=== PATIENT | female | born 1970 | race African-American/Black ===

== ENCOUNTER → 2017-03-02 | Outpatient (CLI) | payer OTHER ==
[~2017-03-02] MED LIST: AMOXICILLIN 50500 M1 PO; BAYER CHEWABLE81 MG PO; BENADRYL25 MG PO; BIAXIN 500 MG500 M1 PO; CITRATE OF MAG296 ML PO; DIABETA 5MG TABL5 MG; FERRIPROX; GLIPIZIDE 10 MG10 MG PO; GLUCOPHAGE1000 MG PO; GLUCOSE 40% GEL15 GM; GLYBURIDE 5 MG T5 M1 PO; HYDROCODON-ACE1 EA12 PO; HYDROCODONE-APA1 TA1 PO; IRON SUPPLEMEN325 MG PO; KEFLEX500 MG PO; LANTUS SUBQ; LEVAQUIN 500 M500 M2; LEVAQUIN 500 M500 M2 PO; LISINOPRIL10 MG PO; METFORMIN HCL500 MG PO; MIRALAX17 GM PO; NORCO 5-325 TA1 EACH PO; NOVOLOG100 UNIT/1 SUBQ; PROTONIX40 M1 PO; REGLAN 5 MG TAB5 M1 PO; REGLAN 5 MG TAB5 MG PO; TRAMADOL 50 MG50 MG PO; VITAMIN B12-FO1 EAC1 PO; ZOFRAN ODT4 MG PO; ZOFRAN4 MG PO; ZPAK PO
--- NOTE | ~2017-03-02 | 2DMMODE ---
[facility] [address] [place] [address] 2 D/M-MODE ECHOCARDIOGRAM Name: SHANNAN FRANK Room #: REG [facility] [id number] Admission: 03/02/17 Attend Phys: Jack Carter Discharge: Date of : 74 Date of Service: 03/02/17 1325 Report #: [id number] THIS REPORT FOR: //name// APPROVED REPORT Study performed: 03/02/2017 07:54:42 EXAM: Comprehensive 2D, Doppler, and color-flow Echocardiogram Patient Location: Out-Patient BSA: 1.72 HR: 84 bpm Other Information Study Quality: Adequate Indications Chest Pain 2D Dimensions RVDd: 35.76 mm LVEF(%): 52.24 (>50%) IVSd: 11.65 (7-11mm) LVOT Diam: 20.75 (18-24mm) LVDd: 49.04 mm PWd: 11.87 (7-11mm) Ascending Ao: 30.79 (22-36mm) LVDs: 35.88 (25-40mm) Aortic Root: 26.75 mm Roth's LVEF: 52.24 % Volumes Left Atrial Volume (Systole) Single Plane 4CH: 55.14 mL Single Plane 2CH: 56.76 mL LA ESV Index: 35.00 mL/m2 Aortic Valve AoV Peak Hiram.: 1.32 m/s AO Peak Gr.: 7.02 mmHg LVOT Max P.60 mmHg LVOT Max V: 0.81 m/s COSME Vmax: 2.06 cm2 Mitral Valve E/A Ratio: 1.1 MV Decel. Time: 156.21 ms MV E Max Hiram.: 1.02 m/s MV A Hiram.: 0.95 m/s [facility] [place] [address] 2 D/M-MODE ECHOCARDIOGRAM Name: SHANNAN FRANK Room #: [facility]#: [id number] Admission: 03/02/17 Attend Phys: Jack Carter Discharge: Date of : 74 Date of Service: 03/02/17 1325 Report #: [id number] MV PHT: 45.30 ms IVRT: 96.89 ms Pulmonary Valve PV Peak Hiram.: 0.99 m/s PV Peak Gr.: 3.92 mmHg Pulmonary Vein P Vein S: 0.51 m/s P Vein A: 0.30 m/s P Vein D: 0.59 m/s P Vein A Dur.: 120.0 msec P Vein S/D Ratio: 0.86 Tricuspid Valve TR Peak Hiram.: 2.59 m/s RAP Estimate: 5.00 mmHg TR Peak Gr.: 26.81 mmHg PA Pressure: 32.00 mmHg Left Ventricle The left ventricle is normal size. Borderline concentric left ventricular hypertrophy. The left ventricular systolic function is normal. The left ventricular ejection fraction is within the normal range. LVEF is 50-55%. The left ventricular diastolic function is normal. Right Ventricle The right ventricle is normal size. The right ventricular systolic function is normal. Atria Left atrium is dilated. The right atrium size is normal. Aortic Valve The aortic valve is normal in structure. No aortic regurgitation is present. There is no aortic valvular stenosis. Mitral Valve The mitral valve is normal in structure. Trace mitral regurgitation. No evidence of mitral valve stenosis. Tricuspid Valve The tricuspid valve is normal in structure. There is trace tricuspid regurgitation. The right atrial pressure is estimated at 5 mmHg. There is mild pulmonary hypertension with an estimated PAP of 32 mmHg. Pulmonic Valve The pulmonary valve is normal in structure. There is no pulmonic [address] [address] 2 D/M-MODE ECHOCARDIOGRAM Name: SHANNAN FRANK Room #: REG CL Daniel#: [id number] Admission: 03/02/17 Attend Phys: Jack Carter Discharge: Date of : 74 Date of Service: 03/02/17 1325 Report #: [id number] valvular regurgitation. Great Vessels The aortic root is normal in size. The ascending aorta is normal in size. IVC is normal in size and collapses >50% with inspiration. Pericardium There is no pericardial effusion. <Conclusion> The left ventricle is normal size. LVEF is 50-55%. Left atrium is dilated. The aortic valve is normal in structure. The mitral valve is normal in structure. Trace mitral regurgitation. The tricuspid valve is normal in structure. There is trace tricuspid regurgitation. The right atrial pressure is estimated at 5 mmHg. There is mild pulmonary hypertension with an estimated PAP of 32 mmHg. The pulmonary valve is normal in structure. <ELECTRONICALLY SIGNED> By: Jack Martinez MD 03/02/17 1325 24 1325 Jack Martinez MD /INF
== END ==
LOC: CV 07:03 → NUC 07:31 → CV 10:42
DX: I27.2 Other secondary pulmonary hypertension (principal); R60.9 Edema, unspecified

== ENCOUNTER → 2017-06-20 | Outpatient (CLI) | payer OTHER | LOC: MRI 12:20 | DX: M50.30 Other cervical disc degeneration, unspecified cervical region (principal); E11.42 Type 2 diabetes mellitus with diabetic polyneuropathy; R20.2 Paresthesia of skin; Z86.73 Personal history of transient ischemic attack (TIA), and cerebral infarction without residual deficits ==

== ENCOUNTER → 2017-07-13 | Outpatient (CLI) | payer OTHER | LOC: ULTRA 09:20 → RAD 11:07 | DX: N18.3 Chronic kidney disease, stage 3 (moderate) (principal); E11.42 Type 2 diabetes mellitus with diabetic polyneuropathy; Z86.73 Personal history of transient ischemic attack (TIA), and cerebral infarction without residual deficits ==

== ENCOUNTER → 2017-08-19 | Outpatient (CLI) | payer OTHER | LOC: RAD 16:10 | DX: M25.512 Pain in left shoulder (principal) ==

== ENCOUNTER → 2018-07-24 | Outpatient (CLI) | payer OTHER | LOC: CAT 10:08 | DX: K40.90 Unilateral inguinal hernia, without obstruction or gangrene, not specified as recurrent (principal); C18.2 Malignant neoplasm of ascending colon; I25.10 Atherosclerotic heart disease of native coronary artery without angina pectoris; J98.4 Other disorders of lung; R19.5 Other fecal abnormalities ==

== ENCOUNTER → 2018-10-26 | Outpatient (CLI) | payer OTHER | LOC: MRI 10-24 10:46 | DX: M54.16 Radiculopathy, lumbar region (principal); G63 Polyneuropathy in diseases classified elsewhere; E11.22 Type 2 diabetes mellitus with diabetic chronic kidney disease; N18.4 Chronic kidney disease, stage 4 (severe) ==

== ENCOUNTER → 2018-10-26 | Outpatient (CLI) | payer OTHER | LOC: RAD 15:13 | DX: I10 Essential (primary) hypertension (principal) ==

== ENCOUNTER 2018-12-25 17:43 | Inpatient (IN) | payer OTHER ==
[~2018-12-25] VITALS: Ht 157.5 cm; Wt 76.2 kg
--- NOTE | ~2018-12-25 | D ---
[facility] [place] [address] [place] [address] DISCHARGE SUMMARY Name: SHANNAN FRANK Room #: 363-P ADM IN M.R.#: [id number] Admission: 12/25/18 ������������������ Attend Phys: Nohelia Rosa Discharge: ������������������ Date of : 74 Report #: [id number] THIS REPORT FOR: //name// CC: Robert Gould Fam DATE OF SERVICE: 12/29/2018 ATTENDING PHYSICIAN: Dr. Roebrt Kenyon. CHIEF COMPLAINT: Feeling short of breath and having some abdominal pain. HISTORY OF PRESENT ILLNESS: The patient is a 48-year-old female with known history of renal failure, diabetes mellitus and hypertension, who presented with complaints of having lower abdominal pain. On evaluation, she was noted to have a urinary tract infection and was started on IV Rocephin. During the stay in the hospital, she was closely monitored regarding her renal function, which continued to improve. Her medications were adjusted. She was taken off the lisinopril and the torsemide. She was closely followed by the Renal Service. She was also monitored regarding her blood sugars and was restarted on her home regimen of insulin. She also remained stable regarding her blood pressure, which remained controlled. The patient did complain of having low oxygen saturation, which was monitored, and there was no cause for it. At the time of discharge, the oxygen saturation was 92-93% on room air. This was discussed with the patient that it could be a fact secondary to a pain medication. The patient was advised to wean off the pain medication. The patient was discharged to home in a stable and improved condition. FINAL DIAGNOSES: 1. Urinary tract infection. Urine culture was pending. 2. Renal failure. 3. Diabetes mellitus. 4. Hypertension. 5. Neuropathy. 6. Blindness. PLAN: The patient was discharged to home in a stable and improved condition To increase activity as tolerated and to take a renal diet. ��������������������������������������������� ���������������������������������������� By: ��������������������������������������������� 1232 1244 Bryanna Otto MD /nt
[2018-12-25 18:06] VITALS: BP 174/65
[2018-12-25 20:40] LABS: URINE BILIRUBIN NEGATIVE (Negative); URINE BLOOD 1+ (Negative); URINE CLARITY CLEAR; URINE COLOR YELLOW; URINE GLUCOSE-RANDOM* 3+ (Negative); URINE KETONES NEGATIVE (Negative); URINE NITRITE-REFLEX NEGATIVE (Negative); URINE PROTEIN (DIPSTICK) 2+ (Negative); URINE UROBILINOGEN 0.2 E.U./dl (0.2-1.0)
[2018-12-25 20:41] LABS: URINE LEUKOCYTES-REFLEX 1+ (Negative)
[2018-12-25 20:51] LABS: BACTERIA-REFLEX None Seen /HPF (None Seen); CASTS None Seen /LPF (None Seen); CRYSTALS None Seen /LPF (None Seen); SQUAMOUS None Seen /LPF (0-3); URINE RBC 0-2 Rare /HPF (0-2); URINE WBC-REFLEX >25 Many /HPF (0-5); WBC CLUMPS Moderate (None Seen)
[2018-12-25 21:02] LABS: HEMATOCRIT 28.4 % (37.0-47.0); HEMOGLOBIN 9.2 gm/dL (12.0-15.0); MCH 27.9 pg (26.0-34.0); MCHC 32.6 g/dL (28.0-37.0); MCV 85.5 fL (80.0-100.0); PLATELET COUNT 280 thou/uL (150-400); RBC 3.32 mil/uL (4.20-5.00); RDW 14.3 % (10.5-14.5); WBC 5.9 thou/uL (4.0-11.0)
[2018-12-25 21:17] LABS: ALBUMIN 3.7 g/dL (3.4-5.0); DIRECT BILIRUBIN < 0.1 mg/dL (<0.1-0.3); LIPASE 230 U/L (73-393); SGOT 19 U/L (15-37); SGPT 17 U/L (30-65); TOTAL BILIRUBIN 0.1 mg/dL (<0.1-1.0)
[2018-12-25 21:20] LABS: ABSOLUTE NEUTROPHILS 3.7 thou/uL (1.4-8.2); ANISOCYTOSIS 1+; NUCLEATED RBCS 1 /100WBC; POLYCHROMASIA OCCASIONAL
[2018-12-25 21:21] LABS: POTASSIUM 5.3 mmol/L (3.5-5.1)
[2018-12-25] MEDS ORDERED: SODIUM BICARBO650 M3 PO (22:42)
[2018-12-25] MEDS ORDERED: DEMADEX10 MG PO (22:43)
[2018-12-25] MEDS ORDERED: NORCO 5-325 TA1 EAC1 PO (22:44)
[2018-12-25] MEDS ORDERED: FLEXERIL PO (22:45)
[2018-12-25] MEDS ORDERED: AMLODIPINE BESY10 MG PO (22:46)
[2018-12-25] MEDS ORDERED: CARVEDILOL12.5 MG (22:46)
[2018-12-25] MEDS ORDERED: XANAX 0.25 MG0.25 MG PO (22:48)
[2018-12-25] MEDS ORDERED: GABAPENTIN 100100 MG PO (22:48)
[2018-12-26 00:34] VITALS: BP 189/88
--- NOTE | 2018-12-26 06:00 | NUR ---
PT ARRIVED OT UNIT AT 2300. COMPLETED ADMISSION, ACTIVATED CARE PLAN, AND ADDED NECESSARY INTERVENTIONS. FALL PRECAUTIONS IN PLACE PT STATES SHE HAD SOME WEAKNESS DUE TO N/V. PAIN CONTROL AND NAUSEA MANAGEMENT WERE THE GOALS FOR REST OF SHIFT. GAVE 2X IV PAIN MEDICATION AND 1X ZOFRAN FOR NAUSEA. PT DRINKS HOT WATER SHE STATES SHE IS ALWAYS COLD. PT ASKED FOR XANAX THAT IS A HOME MEDICATION. WOUNDS CONSIST OF ONE SMALL SKIN TEAR ON LEFT OUTER FOOT THAT HAS A BAND-AID ON IT FROM HOME. POC BEING FOLLOWED WITH IVF. A CONSULT TO NEPHROLOGY WILL BE PLACED. HOURLY ROUNDING AND PT USES CALL LIGHT EFFECTIVELY.
[2018-12-26 07:25] VITALS: BP 149/65
--- NOTE | 2018-12-26 09:07 | NUR ---
Nutrition: pt admit with adb pain, nausea and loose stools x 3 days. Noted pt wt up 30 lb over past several years. Na 130, BUN 44, K 5.3, albumin 3.7. Nephrology has been consulted. No H&P available yet. Pt with c/o nausea, no intake records. Expect normal intake as symptoms resolve. Assess at low-mild nutrition risk at this time.
[2018-12-26 16:45] VITALS: BP 157/81
[2018-12-26 19:09] VITALS: BP 137/62
--- NOTE | 2018-12-26 19:30 | NUR ---
PATIENT ALERT AND ORIENTED AND VERY KNOWLEDGEABLE ABOUT HER CARE AND MEDS. 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 PATIENT CONTINUES TO HAVE LOW ABDOMINAL PAIN. PATIENT ALSO CONCERNED THAT SHE IS NOT RECEIVING MEDS SHE WAS PREVIOUSLY TAKING AT HOME. CONTACTED DR. DÍAZ AND HE IS AWARE. WILL CONTINUE TO MONITOR.
[2018-12-27 04:13] VITALS: BP 160/77
--- NOTE | 2018-12-27 04:27 | NUR ---
STILL HAVING NAUSEA, [place] [id number]. UPSET ABOUT HOW HER HOME MEDS ARE BEING MANAGED BY HER PRIMARY CARE DOCTOR. SAID SHE WILL TALK TO THEM TODAY. UP ADLIB, GAIT STEADY, SON STAYED ALL NIGHT AND ASSISTED PATIENT. IVF INFUSING, TOLERATING ORAL INTAKE, MONITORED.
[2018-12-27 05:58] LABS: HEMATOCRIT 26.1 % (37.0-47.0); HEMOGLOBIN 8.6 gm/dL (12.0-15.0); MCH 28.3 pg (26.0-34.0); MCHC 32.9 g/dL (28.0-37.0); MCV 85.8 fL (80.0-100.0); RBC 3.04 mil/uL (4.20-5.00); RDW 14.7 % (10.5-14.5); WBC 4.4 thou/uL (4.0-11.0)
[2018-12-27 06:14] LABS: CALCIUM 8.5 mg/dL (8.5-10.1); CREATININE 4.5 mg/dL (0.6-1.0); POTASSIUM 4.6 mmol/L (3.5-5.1)
[2018-12-27 07:18] VITALS: BP 172/90
--- NOTE | 2018-12-27 10:10 | NUR ---
assessment: CM REVIEWED CHART AND MET WITH PT AT THE BEDSIDE. PT WAS ADMITTED WITH ACUTE ON CHRONIC RF. PT REPORTS SHE LIVES IN A TOWNHOUSE WITH HER KIDS. PT REPORTS HAVING A FEWS STEP TO ENTER AND REPORTS A FULL FLIGHT OF STEPS WITH HANDRAILS TO HER BEDROOM. PT REPORTS AMBULATING INDEPENDENTLY. PT REPORTS SHE INDEPENDENT WITH ADLS. CM DISCUSSED ROLE. PT REPORTS SHE WAS GOING TO OUTPT THERAPY HERE A [facility] AND PLANS ON RESUMING AT DISCHARGE. SHE STATES SHE WILL CONTACT DR. DUMONT IF NEEDED TO RESUME OUTPATIEN THERAPY. PT REPORTS NO FURTHER NEEDS FROM CM PRIOR TO DISCHARGE.
[2018-12-27 11:22] LABS: % SATURATION 20 % (20-39); IRON 49 ug/dL (50-170); TIBC 245 ug/dL (250-450)
--- NOTE | 2018-12-27 12:56 | H ---
[facility] [place] [place] [address] HISTORY AND PHYSICAL Name: SHANNAN FRANK Room #: 363-P ADM IN M.R.#: [id number] Admission: 12/25/18 ������������������ Attend Phys: Nohelia Rosa Discharge: ������������������ Date of : 74 Report #: [id number] THIS REPORT FOR: //name// CC: Robert Gould Fam DATE OF SERVICE: 12/26/2018 CHIEF COMPLAINT: Abdominal pain. HISTORY OF PRESENT ILLNESS: The patient is a 48-year-old female with multiple medical problems, came in to the Emergency Room with 3-day history of abdominal pain. She reports some diarrhea few episodes, but mainly dry type nausea with pain in the suprapubic area for about 3 days. She has not been eating well and has just been using Zofran as needed. She held off on some of her medicines including insulin because she has had not been eating. Urinalysis through the ER suggested acute infection. PAST MEDICAL HISTORY: Chronic kidney disease, diabetes type 2, hypertension, anemia of chronic disease, history of H. pylori with GI bleed, transfusions in 2013, 2015, and 2016, stroke in 2017. There was a report of tumor in the ascending colon. PAST SURGICAL HISTORY: As above. FAMILY HISTORY: Unknown. SOCIAL HISTORY: Denies chronic alcohol or tobacco use. ALLERGIES: AMOXICILLIN, CODEINE, PENICILLIN. MEDICATIONS: Zofran, iron, Lantus, NovoLog, lisinopril, hydrocodone, Protonix, glyburide. REVIEW OF SYSTEMS: She denies headache, chest pain, shortness of breath, dysuria, myalgias, arthralgias, syncope, or fall. OBJECTIVE: VITAL SIGNS: Temperature 36.9, pulse 85, respirations 16, blood pressure 149/65, O2 sat 99% on room air. GENERAL: She is awake and alert, in no distress. HEAD AND NECK: Unremarkable. LUNGS: Clear. HEART: Regular. ABDOMEN: Soft, normoactive bowel sounds. Tender over the suprapubic area. No rebound, no guarding. [facility] [address] [place] [address] HISTORY AND PHYSICAL Name: SHANNAN FRANK Room #: 363-P ADM IN M.R.#: [id number] Admission: 12/25/18 ������������������ Attend Phys: Nohelia Rosa Discharge: ������������������ Date of : 74 Report #: [id number] EXTREMITIES: No cyanosis, clubbing, or edema. NEUROLOGIC: Motor strength 4-5/5 throughout. LABORATORY DATA: White count is normal, hemoglobin 9. Potassium 5.3, creatinine 5, glucose this morning was 173. Urinalysis had protein, blood, leukocyte esterase, white cells and clumps. Urine culture is pending. ASSESSMENT: 1. Acute cystitis. 2. Abdominal pain, likely due to urinary tract infection. 3. Acute on chronic kidney disease, stage 4. 4. Hyperkalemia due to the above. 5. Anemia of chronic disease. 6. Uncontrolled diabetes type 2. 7. Hypertension. PLAN: I will resume her antihypertensive medications and use sliding scale insulin for now until eating and then adjust accordingly. AVA inhibitor and diuretic to be held and Renal consult has been placed. ��������������������������������������������� <ELECTRONICALLY SIGNED> ���������������������������������������� By: Luis Armando Lynne MD ��������������������������������������������� 12/27/18 1256 1023 1050 Luis Armando Lynne MD /nt
--- NOTE | 2018-12-27 13:17 | NUR ---
Nutrition: follow up as H&P and more info available. Dx: acute on chronic CKD, stage IV. Night RN noted pt tolerating po. However, advertising layout worker noted pt with decreased appetite, N/V and questioning possible gastroparesis. RD will follow up with pt and reassess.
[2018-12-27 20:15] VITALS: BP 170/79
--- NOTE | 2018-12-27 20:25 | NUR ---
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 PATIENT UPSET WITH DR. DÍAZ REGARDING HER MEDICATIONS. DR. DÍAZ ATTEMPT TO TALK WITH PATIENT BUT PATIENT REQUEST DR. DÍAZ TO LEAVE THE ROOM, STATING YOUR NOT LISTENING TO ME. DR. ROYAL WILL TAKE OVER CARE TOMORROW AND PATIENT STATES THIS IS OK WITH HER. PATIENT IS ABLE TO ABULATE BY HERSELF AND WAS ENCOURAGED TO BE PHYSICALLY ACTIVE. PATIENT FRIEND, KATERINE, AND SONS PERIODICALLY IN ROOM. PATIENT REQUEST MEDS FROM HER PHARMACY BE FAXED TO [facility], BUT HER PHARMACY INDICATED IT CANNOT BE DONE. MEDS LIST FROM [facility] IS AVAILABLE IN [employer] AND PRINTED COPY AND PLACE IN CHART. PATIENT CONTINUES TO HAVE LOW ABDOMINAL PAIN. WILL CONTINUE TO FOLLOW.
[2018-12-28 00:09] VITALS: BP 170/79
[2018-12-28 04:45] VITALS: BP 153/72
--- NOTE | 2018-12-28 06:23 | NUR ---
FOLLOWING POC IN PAIN AND BLOOD SUGAR MANAGEMENT. PT STATES SHE HAS GENERALIZED ABDOMINAL PAIN. PT IS A/0 X4, UP AD ALLISON AND RUNS NSR ON TELE. PT IS ON AND OFF OXYGEN WITH 2 L VIA NC WHEN SHE FEELS ANXIETY. XANAX GIVEN FOR ANXIETY. PT IS CONTINENT TO BOTH GI AND . SKIN IS INTACT, AND PLAN IS TO DC TO HOME. PT REFUSES TO WEAR SCD'S. PT SON ROOMING IN. HOURLY ROUNDING.
[2018-12-28 07:24] LABS: ALBUMIN 3.1 g/dL (3.4-5.0); CALCIUM 8.9 mg/dL (8.5-10.1); CREATININE 4.4 mg/dL (0.6-1.0); PHOSPHORUS 5.3 mg/dL (2.5-4.9)
[2018-12-28 07:27] VITALS: BP 156/76
[2018-12-28] MEDS ORDERED: GLYBURIDE 2.52.5 MG PO (09:37)
[2018-12-28 15:56] VITALS: BP 151/80
[2018-12-28 19:20] VITALS: BP 147/66
--- NOTE | 2018-12-28 20:14 | NUR ---
PT REPORTS A HEADACHE AND TREATED WITH NORCO WITH GOOD RESULTS..VERY WITHDRAWN FLAT AFFECT..
[2018-12-29 03:19] VITALS: BP 138/64
[2018-12-29 06:34] LABS: ALBUMIN 2.9 g/dL (3.4-5.0); CALCIUM 8.8 mg/dL (8.5-10.1); CREATININE 4.2 mg/dL (0.6-1.0); POTASSIUM 5.3 mmol/L (3.5-5.1)
--- NOTE | 2018-12-29 06:48 | NUR ---
DC GOALS ARE BEING MET AND PT COULD POSSIBLY DC TODAY. PT UP AD ALLISON AND WAS WANTING TO WALK AROUND THE UNIT. PT IN BETTER SPIRITS AND INCREASING POSITIVE MOOD. PT ONLY REQUEST WAS FOR XANAX. NO OTHER COMPLIANTS AND PT SONS ROOMING IN. HOURLY ROUNDING.
[2018-12-29 07:45] VITALS: BP 155/59
[2018-12-29 11:32] VITALS: BP 149/62
--- NOTE | 2018-12-29 12:03 | HC ---
[facility] [place] [address] CONSULTATION Name: SHANNAN FRANK Room #: 363-P ADM IN M.R.#: [id number] Admission: 12/25/18 ������������������ Attend Phys: Nohelia Rosa Discharge: ������������������ Date of : 74 Report #: [id number] THIS REPORT FOR: //name// CC: Robert Kenyon Stanfiona Fam DATE OF SERVICE: 12/26/2018 NEPHROLOGY CONSULTATION REASON FOR CONSULTATION: Acute on chronic kidney disease. HISTORY OF PRESENT ILLNESS: This 48-year-old patient with longstanding diabetes, hypertension, progressive diabetic nephropathy and stage 4 chronic kidney disease, presents with several days history of nausea and then some diarrhea, poor appetite, generalized malaise. She has been followed in our office by Dr. Pompa for CKD, and is undergoing workup for kidney transplantation. PAST MEDICAL HISTORY: Longstanding diabetes and hypertension. She had colon cancer and had a partial colectomy 4 years ago. She has had a small CVA in the past. She has got retinopathy and has had several laser treatments to her eyes and she has peripheral neuropathy. HOME MEDICATIONS: Include iron, insulin, lisinopril 20 mg daily, metformin 500 mg b.i.d., Protonix 40 mg b.i.d., glyburide. ALLERGIES: PENICILLIN AND CODEINE. SOCIAL HISTORY: Nonsmoker, occasional use of alcohol. REVIEW OF SYSTEMS: GENERAL: She has been feeling poorly. EYES: She has got very poor vision. ENT: Hearing okay, swallows okay. No mouth sores. ENDOCRINE: Positive for the diabetes. RESPIRATORY: No shortness of air. CARDIAC: No chest pain, angina or palpitations. GASTROINTESTINAL: She has had the poor appetite, nausea, unable to really eat and some diarrhea. GENITOURINARY: No dysuria or hematuria. NEUROLOGIC: She has got peripheral neuropathy with pain and numbness in her feet. SKIN: There are no skin rashes. PHYSICAL EXAMINATION: [facility] [address] [place] [address] CONSULTATION Name: SHANNAN FRANK Room #: [address] [place] [address] [place] [facility].#: [id number] Admission: 12/25/18 ������������������ Attend Phys: Nohelia Rosa Discharge: ������������������ Date of : 74 Report #: [id number] VITAL SIGNS: This is an ill-appearing, lethargic patient. SKIN: Unremarkable. SKELETAL: Shows her to be well developed, well nourished. No amputations. HEENT: Extraocular movements are full. Vision is poor. No scleral icterus. Hearing intact. Mucous membranes are dry. NECK: Supple. CHEST: Clear to auscultation. HEART: Regular. ABDOMEN: Slightly tender in the lower quadrants. EXTREMITIES: Show no edema. Pulses intact. NEUROLOGIC: Shows numbness in the feet. LABORATORY DATA: Glucose is 525, the creatinine is 5, potassium is 5.3. Sodium is 130. Hemoglobin is 9.2. ASSESSMENT AND PLAN: 1. Acute on chronic kidney disease. She is volume depleted. She has chronic kidney disease as well. She is undergoing workup in our office for transplantation and preparation for possible end-stage renal disease therapy. 2. Diabetes mellitus with triopathy. 3. Nausea with poor appetite and diarrhea. She has a GI illness. She has actually been vomiting. I wonder about gastroparesis or gastroenteritis. 4. History of resected colon cancer. 5. History of cerebrovascular accident. ��������������������������������������������� <ELECTRONICALLY SIGNED> ���������������������������������������� By: Grant Hernandez MD ��������������������������������������������� 12/29/18 1203 1157 1246 Grant Hernandez MD /nt
[2018-12-29] MEDS ORDERED: COREG6.25 MG PO (12:11)
[2018-12-29] MEDS ORDERED: AMLODIPINE BESY10 MG PO (12:14)
[2018-12-29] MEDS ORDERED: ALPRAZOLAM 0.50.5 M1 PO (12:16)
[2018-12-29] MEDS ORDERED: SODIUM BICARBO650 M3 PO (12:17)
[2018-12-29 13:06] VITALS: BP 149/62
--- NOTE | 2018-12-29 15:33 | NUR ---
care of pt assumed this am @ ~0700. pt noted to be very sleepy this am up until lunch time. pt requested a shower, but was interupted by dr danny, meals, nurse requests that she never got around to the shower, and just chose to take one at home upon finding out about dc today. pt denies n/v/d, goo appetite for food and fluid today. pt refused to take her lisinopril and torsemide today. pt denied need for pain medication today. pt called friend for a ride home, arrive late this afternoon. scripts given w/ education materials. discharge paperwork gone through w/ pt. iv access dc'd and tele dc'd. pt states she will fu w/ dr. wan on Tuesday.
== END 2018-12-29 15:03 | disposition home or self-care (01) | DRG 690 ==
LOC: ER 17:43 → 3W 22:04 → EROBS 22:04 → 3W 12-26 00:21 → ENTRNSPT 12-29 15:27
PROVIDERS: Emergency Medicine; Internal Medicine Geriatric Medicine; Internal Medicine Nephrology; ADMIT Internal Medicine
DX: N30.00 Acute cystitis without hematuria (principal); N17.9 Acute kidney failure, unspecified; N18.4 Chronic kidney disease, stage 4 (severe); E11.65 Type 2 diabetes mellitus with hyperglycemia; K21.9 Gastro-esophageal reflux disease without esophagitis; E87.5 Hyperkalemia; E11.319 Type 2 diabetes mellitus with unspecified diabetic retinopathy without macular edema; I12.9 Hypertensive chronic kidney disease with stage 1 through stage 4 chronic kidney disease, or unspecified chronic kidney disease; E11.41 Type 2 diabetes mellitus with diabetic mononeuropathy; E86.9 Volume depletion, unspecified; E11.22 Type 2 diabetes mellitus with diabetic chronic kidney disease; H54.7 Unspecified visual loss; D63.1 Anemia in chronic kidney disease; Z79.4 Long term (current) use of insulin; Z86.73 Personal history of transient ischemic attack (TIA), and cerebral infarction without residual deficits; Z88.6 Allergy status to analgesic agent; Z88.1 Allergy status to other antibiotic agents; Z88.0 Allergy status to penicillin; Z85.038 Personal history of other malignant neoplasm of large intestine; Z90.49 Acquired absence of other specified parts of digestive tract
CPT/HCPCS: 10879

== ENCOUNTER 2019-07-21 13:07 | Emergency (ER) | payer OTHER ==
[~2019-07-21] VITALS: Ht 157.5 cm; Wt 77.2 kg
[~2019-07-21 13:07] MED LIST changes: +ALPRAZOLAM 0.50.5 M1 PO; +AMLODIPINE BESY10 MG PO; +CARVEDILOL12.5 MG; +COREG6.25 MG PO; +DEMADEX10 MG PO; +FLEXERIL PO; +GABAPENTIN 100100 MG PO; +GLYBURIDE 2.52.5 MG PO; +NORCO 5-325 TA1 EAC1 PO; +SODIUM BICARBO650 M3 PO; +XANAX 0.25 MG0.25 MG PO
[2019-07-21 16:54] LABS: HEMATOCRIT 29.9 % (37.0-47.0); HEMOGLOBIN 9.8 gm/dL (12.0-15.0); MCH 30.5 pg (26.0-34.0); MCHC 32.8 g/dL (28.0-37.0); RBC 3.21 mil/uL (4.20-5.00); RDW 18.6 % (10.5-14.5); WBC 7.7 thou/uL (4.0-11.0)
[2019-07-21 17:03] LABS: CALCIUM 9.4 mg/dL (8.5-10.1); CREATININE 7.2 mg/dL (0.6-1.0); POTASSIUM 4.4 mmol/L (3.5-5.1)
[2019-07-21] MEDS ORDERED: LASIX 20 MG TAB20 MG PO (17:18)
[2019-07-21 17:51] VITALS: BP 172/82
== END 2019-07-21 17:53 | disposition still patient (30) ==
LOC: ER 13:07
PROVIDERS: Emergency Medicine
DX: T82.590A Other mechanical complication of surgically created arteriovenous fistula, initial encounter (principal); I10 Essential (primary) hypertension; E11.9 Type 2 diabetes mellitus without complications; K21.9 Gastro-esophageal reflux disease without esophagitis; Z86.2 Personal history of diseases of the blood and blood-forming organs and certain disorders involving the immune mechanism; Z98.890 Other specified postprocedural states; Z86.73 Personal history of transient ischemic attack (TIA), and cerebral infarction without residual deficits; Z79.4 Long term (current) use of insulin; Z88.0 Allergy status to penicillin; Z88.1 Allergy status to other antibiotic agents; Z88.6 Allergy status to analgesic agent; Y83.9 Surgical procedure, unspecified as the cause of abnormal reaction of the patient, or of later complication, without mention of misadventure at the time of the procedure; Y92.89 Other specified places as the place of occurrence of the external cause

== ENCOUNTER 2019-08-09 20:21 | Emergency (ER) | payer OTHER ==
[~2019-08-09] VITALS: Ht 157.5 cm; Wt 73.9 kg
[~2019-08-09 20:21] MED LIST changes: +LASIX 20 MG TAB20 MG PO
[2019-08-09 21:02] LABS: ABSOLUTE NEUTROPHILS 11.3 thou/uL (1.4-8.2); BASOPHILS 0.3 % (0.0-2.0); EOSINOPHILS 0.6 % (0.0-3.0); MCH 29.8 pg (26.0-34.0); MCHC 32.1 g/dL (28.0-37.0); MCV 92.8 fL (80.0-100.0); MONOCYTES 5.9 % (1.0-8.0); PLATELET COUNT 278 thou/uL (150-400); POLYS 87.2 % (36.0-66.0); RBC 3.34 mil/uL (4.20-5.00); RDW 17.8 % (10.5-14.5)
[2019-08-09 21:10] LABS: CALCIUM 8.5 mg/dL (8.5-10.1); CREATININE 6.8 mg/dL (0.6-1.0)
[2019-08-09 21:15] LABS: POTASSIUM 6.4 mmol/L (3.5-5.1)
[2019-08-10 00:02] VITALS: BP 145/64
== END 2019-08-09 23:48 | disposition home or self-care (01) ==
LOC: ER 20:21
PROVIDERS: Emergency Medicine
DX: T82.848A Pain due to vascular prosthetic devices, implants and grafts, initial encounter (principal); R20.0 Anesthesia of skin; I10 Essential (primary) hypertension; E11.9 Type 2 diabetes mellitus without complications; K21.9 Gastro-esophageal reflux disease without esophagitis; G51.0 Bell's palsy; Z98.890 Other specified postprocedural states; Z86.2 Personal history of diseases of the blood and blood-forming organs and certain disorders involving the immune mechanism; Z86.73 Personal history of transient ischemic attack (TIA), and cerebral infarction without residual deficits; Z79.4 Long term (current) use of insulin; Z88.0 Allergy status to penicillin; Z88.1 Allergy status to other antibiotic agents; Z88.6 Allergy status to analgesic agent

== ENCOUNTER → 2019-08-13 | Outpatient (CLI) | payer OTHER | LOC: ULTRA 09:29 | DX: E04.2 Nontoxic multinodular goiter (principal) ==

== ENCOUNTER 2020-02-05 17:18 | Emergency (ER) | payer OTHER ==
[~2020-02-05] VITALS: Ht 157.5 cm; Wt 74.8 kg
[2020-02-05] MEDS ORDERED: HYDRALAZINE 5050 MG PO (18:19)
[2020-02-05] MEDS ORDERED: TRADJENTA5 MG (19:17)
[2020-02-05] MEDS ORDERED: ISORDIL10 MG PO (19:18)
[2020-02-05] MEDS ORDERED: RENA-VITE TABL0.8 MG PO (19:20)
[2020-02-05] MEDS ORDERED: CARVEDILOL25 MG PO (19:23)
[2020-02-05] MEDS ORDERED: CALCITRIOL0.25 MCG PO (19:24)
[2020-02-05] MEDS ORDERED: NORCO 5-325 TA1 EAC2 PO (20:12)
[2020-02-05] MEDS ORDERED: PREDNISONE 20 M20 MG PO (20:12)
[2020-02-05 20:20] VITALS: BP 173/77
== END 2020-02-05 20:20 | disposition home or self-care (01) ==
LOC: ER 17:18
DX: S63.591A Other specified sprain of right wrist, initial encounter (principal); S70.01XA Contusion of right hip, initial encounter; S90.31XA Contusion of right foot, initial encounter; E11.9 Type 2 diabetes mellitus without complications; K21.9 Gastro-esophageal reflux disease without esophagitis; I11.0 Hypertensive heart disease with heart failure; I50.9 Heart failure, unspecified; Z86.73 Personal history of transient ischemic attack (TIA), and cerebral infarction without residual deficits; Z98.890 Other specified postprocedural states; Z88.1 Allergy status to other antibiotic agents; Z88.0 Allergy status to penicillin; Z88.5 Allergy status to narcotic agent; Z79.4 Long term (current) use of insulin; Z79.899 Other long term (current) drug therapy; W10.9XXA Fall (on) (from) unspecified stairs and steps, initial encounter; Y93.89 Activity, other specified; Y92.89 Other specified places as the place of occurrence of the external cause; Y99.9 Unspecified external cause status

== ENCOUNTER → 2020-04-02 | Outpatient (CLI) | payer OTHER ==
[~2020-04-02] MED LIST changes: +CALCITRIOL0.25 MCG PO; +CARVEDILOL25 MG PO; +HYDRALAZINE 5050 MG PO; +ISORDIL10 MG PO; +NORCO 5-325 TA1 EAC2 PO; +PREDNISONE 20 M20 MG PO; +RENA-VITE TABL0.8 MG PO; +TRADJENTA5 MG
== END ==
LOC: BC 12:00
PROVIDERS: ATTEND Internal Medicine
DX: Z12.31 Encounter for screening mammogram for malignant neoplasm of breast (principal); N64.89 Other specified disorders of breast; I70.202 Unspecified atherosclerosis of native arteries of extremities, left leg; I70.291 Other atherosclerosis of native arteries of extremities, right leg

== ENCOUNTER → 2020-04-08 | Outpatient (CLI) | payer OTHER | LOC: SJCVC 10:49 | PROVIDERS: ATTEND Nuclear Medicine Nuclear Cardiology | DX: I73.9 Peripheral vascular disease, unspecified (principal); E11.22 Type 2 diabetes mellitus with diabetic chronic kidney disease; I13.2 Hypertensive heart and chronic kidney disease with heart failure and with stage 5 chronic kidney disease, or end stage renal disease; I50.9 Heart failure, unspecified; N18.6 End stage renal disease; E11.40 Type 2 diabetes mellitus with diabetic neuropathy, unspecified; C18.2 Malignant neoplasm of ascending colon; I63.9 Cerebral infarction, unspecified; Z79.899 Other long term (current) drug therapy ==

== ENCOUNTER → 2020-04-14 | Outpatient (CLI) | payer OTHER ==
[~2020-04-14] VITALS: Ht 157.5 cm; Wt 74.8 kg
[~2020-04-14] MED LIST changes: +ASPIR-TRIN325 MG PO; +DOSOQUIN TABLE1 EACH PO; +EPOGEN2000 UNIT/; +HYDRALAZINE HC100 MG PO; +IRON 100-VITAM1 EACH PO; +IRON18 M1 PO; +ISORDIL 5MG TABL5 MG PO; +ISOSORBIDE DN 110 M1 PO; +NORCO 10-325 T1 EACH PO; +NOVOLOG100 UNIT/M SUBQ; +PLAVIX 75 MG TA75 MG PO; +ROSUVASTATIN CA20 MG PO; +TORSEMIDE20 MG PO; +VALIUM10 MG PO; +ZUPLENZ4 MG PO
[2020-04-14 07:12] VITALS: BP 120/60
[2020-04-14 07:58] LABS: HEMATOCRIT 20.7 % (37.0-47.0); MCHC 33.1 g/dL (28.0-37.0); MCV 93.8 fL (80.0-100.0); RBC 2.21 mil/uL (4.20-5.00); WBC 7.7 thou/uL (4.0-11.0)
[2020-04-14 08:02] LABS: HEMOGLOBIN 6.9 gm/dL (12.0-15.0)
[2020-04-14 08:06] LABS: CALCIUM 9.3 mg/dL (8.5-10.1); CREATININE 5.8 mg/dL (0.6-1.0); POTASSIUM 3.8 mmol/L (3.5-5.1)
== END | disposition home or self-care (01) ==
LOC: CATH 06:33
PROVIDERS: ATTEND Nuclear Medicine Nuclear Cardiology
DX: I70.213 Atherosclerosis of native arteries of extremities with intermittent claudication, bilateral legs (principal); I70.1 Atherosclerosis of renal artery; I25.10 Atherosclerotic heart disease of native coronary artery without angina pectoris; I11.0 Hypertensive heart disease with heart failure; I50.9 Heart failure, unspecified; E11.9 Type 2 diabetes mellitus without complications; D64.9 Anemia, unspecified; K21.9 Gastro-esophageal reflux disease without esophagitis; Z98.890 Other specified postprocedural states; Z79.899 Other long term (current) drug therapy; Z79.4 Long term (current) use of insulin; Z86.73 Personal history of transient ischemic attack (TIA), and cerebral infarction without residual deficits; Z88.0 Allergy status to penicillin; Z88.8 Allergy status to other drugs, medicaments and biological substances

== ENCOUNTER 2020-04-18 20:16 | Inpatient (IN) | payer OTHER ==
[~2020-04-18] VITALS: Ht 157.5 cm; Wt 76.7 kg
--- NOTE | ~2020-04-18 | EMS ---
[address] [address] EMS Patient Care Report Name: SHANNAN FRANK Room #: 170-6 ADM IN M.R.#: [id number] Admission: 04/18/20 Attend Phys: Sean Aguilera MD Discharge: Date of : 74 Report #: [id number] THIS REPORT FOR: //name// Report Transmitted: 04/18/2020 23:00 EMS Care Summary [place], [place]/[facility] Incident [id number] @ 04/18/2020 19:39 Incident Location [address] [place], [place] [id number] Patient SHANNAN FRANK Female, 50 Years 1970 Patient Address [address] [place] [address] Patient History Diabetes,Dialysis, Patient Allergies Penicillin allergy,Amoxicillin, Patient Medications Plavix, Chief Complaint Bleeding from dialysis shunt Disposition Transported No Lights/[place] Dispatch Reason Hemorrhage/Laceration Transported To [facility] Narrative Arrived on the scene, with P36, for a 50 y/o female that is sitting in a chair in the living room. Family said that the Pt does home dialysis and started the process around 1400 this afternoon. Family said that she finished at her normal time at 1615 and has been bleeding from her shunt since. They said that [address] [address] EMS Patient Care Report Name: SHANNAN FRANK Room #: 170-6 ADM IN [place]#: [id number] Admission: 04/18/20 Attend Phys: Sean Aguilera MD Discharge: Date of : 74 Report #: [id number] they have gone through a whole box of gauze. They said that the Pt is on blood thinners but the Pt said that she hasn't taken any since her angiogram that she had on Tuesday of this week. Pt is very warm to the touch and the family said that she is running a fever of 102 degrees F. Fever started sometime today but unknow if it started before, during or after her dialysis. They said that the Pt did go full amount but only took of 1L and normally takes off 2L. See Pt Assessment Hemorrhage from left arm, Possible Covid-19 See FLowchart. Put a mask on the Pt as we arrived. Pt on a quick clot bandage with kerlix to the bleeding. Assisted the Pt from the chair to the stairchair, to the cot, to the ambulance. Had just the exhaust vent on in the back with closure to the front. Transported to the hospital. Enroute, Pt had bleed through the quick clot and direct pressure on put back on. No other changes or incidents. Assisted the Pt from the cot to the bed via cot sheet. Transferred care to receiving facility. Initial Vitals @PTAP: 98,R: 22,BP: 135/84,Pain: 4/10,GCS: 15,CO: 10,SpO2: 100,Revised Trauma: 12, @19:59P: 84,R: 22,BP: 158/80,Pain: 4/10,GCS: 15,SpO2: 80,Revised Trauma: 12, Assessments @19:46MENTAL:Person Oriented,Time Oriented,Place Oriented,Event Oriented,SKIN:Hot,HEENT:Head/Face: No Abnormalities,Eyes: No Abnormalities,Neck/Airway: No Abnormalities,LUNG SOUNDS:General: No Abnormalities,Left Upper: No Abnormalities,Right Upper: No Abnormalities,Left Lower: No Abnormalities,Right Lower: No Abnormalities,ABDOMEN:General: No Abnormalities,Left Upper: No Abnormalities,Right Upper: No Abnormalities,Left Lower: No Abnormalities,Right Lower: No Abnormalities,PELVIS//GI:No Abnormalities,EXTREMITIES:Left Arm: Other,Right Leg: Other,Right Arm: No Abnormalities,Left Leg: No Abnormalities,PULSE:Radial: 2+ Normal,NEURO:No Abnormalities, Impression Leakage of vascular dialysis catheter Procedures @19:49BandagingResponse: Unchanged@19:54Oxygen FlowRate: 2 Device: Nasal Cannula (NC) Response: ImprovedSucceeded@19:46ALS AssessmentResponse: Unchanged 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,BP: 135/84 M,PULSE: 98,RR: 22 R,SPO2: 100 Ox,ETCO2: ,BG: ,PAIN: 4,GCS: 15, 19:38,Call Received [facility] [address] [place] [address] EMS Patient Care Report Name: SHANNAN FRANK Room #: 170-6 ADM IN M.R.#: [id number] Admission: 04/18/20 Attend Phys: Sean Aguilera MD Discharge: Date of : 74 Report #: [id number] 19:38,Dispatch Notified 19:39,Dispatched 19:40,En Route 19:44,On Scene 19:46,At Patient 19:46,ALS Assessment,Response: Unchanged 19:49,Bandaging,Response: Unchanged 19:54,Oxygen FlowRate: 2 Device: Nasal Cannula (NC) Response: ImprovedSucceeded, 19:59,BP: 158/80 M,PULSE: 84,RR: 22 R,SPO2: 80 Ox,ETCO2: ,BG: ,PAIN: 4,GCS: 15, 20:01,Depart Scene 20:08,At Destination 20:19,Call Closed Disclaimer v1.[address] [employer] This EMS Care Summary contains data elements from the applicable legal record (which may be displayed differently). It is designed to provide pertinent information for the following purposes: continuity of care, clinical quality, and state data reporting. The complete legal record is available to ED staff and administrators of the receiving hospital in [employer]'s Patient Tracker. All data is provided "as is."
[~2020-04-18 20:16] MED LIST changes: +DOXYCYCLINE HY100 MG PO
[2020-04-18 20:17] VITALS: BP 170/65
[2020-04-18] MEDS ORDERED: EPO INJECTION (20:33)
[2020-04-18] MEDS ORDERED: ISOSORBIDE DINITRATE PO (20:34)
[2020-04-18 21:06] LABS: CALCIUM 8.1 mg/dL (8.5-10.1); CREATININE 6.5 mg/dL (0.6-1.0); POTASSIUM 3.4 mmol/L (3.5-5.1)
[2020-04-18 21:12] LABS: ALBUMIN 3.3 g/dL (3.4-5.0); TOTAL BILIRUBIN 0.2 mg/dL (0.2-1.0); TOTAL PROTEIN 7.6 g/dL (6.4-8.2)
[2020-04-18 21:13] LABS: BASOPHILS 0.6 % (0.0-2.0); MCV 93.2 fL (80.0-100.0)
[2020-04-18 21:15] LABS: ABSOLUTE NEUTROPHILS 7.5 thou/uL (1.4-8.2); LYMPHOCYTES 13.4 % (24.0-44.0); MCH 31.6 pg (26.0-34.0); MCHC 33.9 g/dL (28.0-37.0); PLATELET COUNT 273 thou/uL (150-400); RBC 1.76 mil/uL (4.20-5.00); RDW 16.3 % (10.5-14.5); WBC 9.6 thou/uL (4.0-11.0)
[2020-04-18 21:20] LABS: HEMATOCRIT 16.4 % (37.0-47.0); HEMOGLOBIN 5.6 gm/dL (12.0-15.0)
[2020-04-18 21:32] LABS: URINE BILIRUBIN NEGATIVE (Negative); URINE BLOOD 1+ (Negative); URINE CLARITY CLEAR; URINE COLOR YELLOW; URINE GLUCOSE-RANDOM* 3+ (Negative); URINE KETONES NEGATIVE (Negative); URINE LEUKOCYTES-REFLEX NEGATIVE (Negative); URINE NITRITE-REFLEX NEGATIVE (Negative); URINE PROTEIN (DIPSTICK) 3+ (Negative); URINE UROBILINOGEN 0.2 E.U./dl (0.2-1.0)
[2020-04-18 21:46] LABS: BACTERIA-REFLEX 1-9 Few /HPF (None Seen); CASTS None Seen /LPF (None Seen); CRYSTALS None Seen /LPF (None Seen); MUCUS 0-3 Light strn/LPF (None Seen); SQUAMOUS >10 Many /LPF (0-3); URINE RBC 3-10 Few /HPF (0-2); URINE WBC-REFLEX 0-5 Rare /HPF (0-5)
[2020-04-18 22:44] LABS: APTT 34.9 Seconds (24.5-32.8); PROTIME 10.7 Seconds (9.3-11.4)
[2020-04-19] VITALS (11 sets, daily range): BP systolic 97–164; BP diastolic 50–75
--- NOTE | 2020-04-19 07:28 | NUR ---
ASSUMED CARE OF PT AT 1900HRS. PT AOX4 AND LETS NEEDS BE KNOWN. FALL PRECAUTION IN PLACE.PT WAS ORIENTED TO THE UNIT AND HER ROOM. PT WAS ABLE TO ANSWER ALL ADMISSION RELATED QUESTIONS. PT HAS DAILYSIS DONE ON M,T,R,F. PT HAS A LEFT ARM DAILYSIS GRAFT. PT RECEIVED 2 UNITS OF PRBC. NO REACTION NOTIED. PT HAD AN ANGEOGRM ON 04/14 AND PUNCTURE SITE WAS RIGHT INGUINAL AREA. PT IS CURRENTLY MENSTRUATING. PT REPORTS SOME LOWER BACK PAIN AND PRN MEDS PROVIDED. PT RUNNINF NSR ON TELE. VSS AND NO S/S OF ACUTE DISTRESS. PT SLEPT PART OF THE SHIFT.
--- NOTE | 2020-04-19 09:59 | EKG ---
[facility] [place] [address] ELECTROCARDIOGRAM REPORT Name: SHANNAN FRANK Room #: 354-P ADM IN M.R.#: [id number] Admission: 04/18/20 Attend Phys: Sean Aguilera MD Discharge: Date of : 74 Report #: [id number] THIS REPORT FOR: cc: Bryanna Otto MD, Stany A. MD Lundgren,Morgan Freeman MD [facility] ~ THIS REPORT FOR: //name// [facility] ED Test Date: 2020-04-18 Test Time: 21:05:41 Pat Name: SHANNAN FRANK Department: Room: [facility] Gender: F Cell Installer: anabell : 1970 Requested By: Hector Anderson Order Number: [id number] MD: Morgan James Measurements Intervals [place] Rate: 99 P: 68 MS: 174 QRS: 43 QRSD: 100 T: 40 QT: 370 QTc: 475 Interpretive Statements Sinus rhythm Nonspecific intraventricular conduction delay Compared to ECG 06/01/2015 12:15:37 QRS duration has widened Electronically Signed On 04-19-2020 9:59:15 CDT by Morgan James [email or web address] <ELECTRONICALLY SIGNED> By: Morgan James MD, FAC 04/19/20 0959 04 04 Morgan James MD, [facility] /EPI
[2020-04-19 10:07] LABS: HEMATOCRIT 22.6 % (37.0-47.0); MCHC 35.2 g/dL (28.0-37.0); MCV 90.9 fL (80.0-100.0); RBC 2.48 mil/uL (4.20-5.00); RDW 15.4 % (10.5-14.5); WBC 8.4 thou/uL (4.0-11.0)
[2020-04-19 10:11] LABS: CALCIUM 7.8 mg/dL (8.5-10.1); CREATININE 8.6 mg/dL (0.6-1.0); POTASSIUM 3.6 mmol/L (3.5-5.1)
[2020-04-19 10:17] LABS: CHOLESTEROL 114 mg/dL (<200); HDL CHOLESTEROL 30 mg/dL (>40); LDL CHOLESTEROL 40 mg/dL (<100); TC:HDL 3.8 Ratio (Not establshd); TRIGLYCERIDE 222 mg/dL (<150); VLDL 44 mg/dL (<40)
[2020-04-19] MEDS ORDERED: NORVASC10 MG PO (15:56)
[2020-04-19] MEDS ORDERED: PREDNISONE 20 M20 MG PO (15:59)
[2020-04-19] MEDS ORDERED: CALCIUM ACETAT667 MG PO (16:02)
[2020-04-19] MEDS ORDERED: FUROSEMIDE 40 M40 MG PO (16:09)
[2020-04-19] MEDS ORDERED: RENVELA800 MG PO (16:11)
--- NOTE | 2020-04-19 19:12 | NUR ---
PT CARE ASSUMED AT 0700. ASSESSMENT CHARTED. MEDICATION CHARTED. DIALYSIS MTTF; LT UA. LEGALLY BLIND; TOTAL RT EYE, PARTIAL LT EYE. REJ IV. SINUS RHYTHM. ASSIST X 1. O2 2LPM NC. PT FAMILY BROUGHT IN ENOUGH HOME MEDS TO FILL 3 PHARMACY BAGS; ALL RECONCILED; DR COLE AWARE.
[2020-04-20] VITALS (7 sets, daily range): BP systolic 146–158; BP diastolic 57–73
--- NOTE | 2020-04-20 03:48 | NUR ---
PT ALERT AND ORIENTED X4, VSS AFEBRILE. C/O ANXIETY. SCHEDULED XANAX GIVEN. LATER IN AM C/O ANXIETY. NOTIFIED PERSONALIZED LIVING ASSISTANT Surekha CAMPBELL. HYDROXYZINE GIVEN ORDERED. PT SLEEPING QUIETLY. SOME VAGINAL BLEEDING NOTED EARLIER. WILL CONTINUE TO MONITOR FOR INCREASE BLEEDING. LEFT ARM + BRUIT AND THRILL. NO BLEEDING NOTED FROM FISTULA. BED DOWN CALL LIGHT IN REACH. BED ALARM ON.
[2020-04-20 05:30] LABS: HEMATOCRIT 22.8 % (37.0-47.0); HEMOGLOBIN 7.8 gm/dL (12.0-15.0); MCH 31.3 pg (26.0-34.0); MCHC 34.3 g/dL (28.0-37.0); MCV 91.4 fL (80.0-100.0); RBC 2.5 mil/uL (4.20-5.00); RDW 15.3 % (10.5-14.5); WBC 10.7 thou/uL (4.0-11.0)
[2020-04-20 05:46] LABS: CALCIUM 8.4 mg/dL (8.5-10.1); MAGNESIUM 2.1 mg/dL (1.8-2.4); POTASSIUM 3.7 mmol/L (3.5-5.1)
[2020-04-20 05:54] LABS: CREATININE 9.6 mg/dL (0.6-1.0)
--- NOTE | 2020-04-20 18:11 | NUR ---
RN ASSUMED PT'S CARE AT 0700AM, PT IS A&OX3, PT STILL HAS VAGINAL BLEEDING ( TOTAL 2.5 PAD SOAKING , IF SOAKING >1 PAD Q1-2H, NEED TO CALL DR), PT'S VS ARE STABLE BY THIS TIME, PT DENIES PAIN AND SOB , PT HAS SECOND TIME COVID PCR TEST TODAY.
--- NOTE | 2020-04-20 22:16 | NUR ---
ENHANCED ISO D/C PER INFECTIOUS DISEASE TEAM. PT HAD X2 COVID 19
--- NOTE | 2020-04-21 02:33 | NUR ---
ASSUMED PT CARE AROUND 1930. AXOX4. INDEPENDENT WITH ADLs IN ROOM. VSS. NO S/S ACUTE DISTRESS NOTED OR REPORTED AT THIS TIME. WILL CONT TO MONITOR FOR ANY CHANGES IN CONDITION.
[2020-04-21 04:05] LABS: GLYCOHEMOGLOBIN (HGB A1C) 8.6 % (4.8-5.6)
[2020-04-21 04:51] VITALS: BP 131/53
[2020-04-21 05:42] LABS: HEMATOCRIT 23.5 % (37.0-47.0); HEMOGLOBIN 8.2 gm/dL (12.0-15.0); MCH 32.4 pg (26.0-34.0); MCV 92.6 fL (80.0-100.0); RBC 2.54 mil/uL (4.20-5.00); RDW 15.3 % (10.5-14.5); WBC 8.2 thou/uL (4.0-11.0)
[2020-04-21 06:03] LABS: CALCIUM 8.8 mg/dL (8.5-10.1); MAGNESIUM 2.4 mg/dL (1.8-2.4); POTASSIUM 3.5 mmol/L (3.5-5.1)
[2020-04-21 06:04] LABS: CREATININE 11.4 mg/dL (0.6-1.0)
--- NOTE | 2020-04-21 07:42 | HC ---
[facility] [place] [address] CONSULTATION Name: SHANNAN FRANK Room #: 354-P ADM IN M.R.#: [id number] Admission: 04/18/20 Attend Phys: Miguelangel Cantu MD Discharge: Date of : 74 Report #: [id number] THIS REPORT FOR: cc: Bryanna Otto MD, Stany A. MD Neufeld,Sunil Brown MD ~ DATE OF SERVICE: 04/19/2020 NEPHROLOGY CONSULTATION REASON FOR CONSULTATION: End-stage renal disease requiring hemodialysis with recent bleeding from a dialysis graft. HISTORY OF PRESENT ILLNESS: This is a 50-year-old female who has longstanding diabetes and hypertension. She ended up with progressive diabetic nephropathy and reached end-stage renal disease. She is a chronic hemodialysis patient, who does home hemodialysis. She does this 4 days weekly at 2.5 hours per treatment using the NxStage machine. She has had multiple prior dialysis accesses, but currently has a left upper arm AV graft in place. She has 2 different people who help her with dialysis. One of those was present yesterday. Apparently, at the end of a run, she had some bleeding. This was from her left arm dialysis graft. She does not remember much about what happened. She knows she ended up in the Emergency Room. The Emergency Room note stated that it was bleeding upon arrival there, but that by 21:07 which was 25 minutes later, the bleeding had been stopped. Hemoglobin was low and she was given a unit of packed red blood cells. It was stated she was hemodynamically stable and she was admitted to the hospital. There is some additional description and the patient is very sketchy about this that she had some vaginal bleeding also although she says she has not had vaginal bleeding for a very long period of time as it has been months and months since she had her last menstrual period. Today, she states she feels weak. She has been somewhat dizzy. She has some nausea, which is frequent with her gastroparesis. She was mildly hypotensive overnight, but today has a much better blood pressure. Recently, it has been running 130/60. She has not much interest in eating today. She denies dyspnea or cough. PAST MEDICAL HISTORY: Diabetes mellitus dating back 20 years, hypertension dating back 10 years or more. She had progressive diabetic nephropathy. She also has significant retinopathy and is legally blind. She has some gastroparesis. She has some peripheral neuropathy. She has also had lower extremity arterial disease and had some stents placed by Dr. Cadet earlier this week. There is a report on some of her past history of a prior CVA. She had a colon cancer with a hemicolectomy in 2014. She had a PET scan earlier this week to see if there was any evidence of disease and she does not know the results of that yet. She has had multiple dialysis accesses placed in the past [address] [address] CONSULTATION Name: SHANNAN FRANK Room #: 354-P [facility] IN M.R.#: [id number] Admission: 04/18/20 Attend Phys: Miguelangel Cantu MD Discharge: Date of : 74 Report #: [id number] including a left forearm graft, which is no longer there, a right upper arm brachiobasilic vein fistula which is no longer active and a left upper arm AV graft, which is a loop graft, which has active at this point. It is the one that was bleeding. MEDICATIONS: She is on some carvedilol. She takes Renvela 800 mg t.i.d. as a phosphate binder. Her medication list is otherwise not entirely interpretable as it is a mix of old and new meds. We will clarify more with the patient, although she is in the midst of a procedure at this time. Of note, she has also had a prior backup. ALLERGIES: LISTED TO AMOXICILLIN, CODEINE, MELATONIN, EFFEXOR, TYLENOL NO. 3. SOCIAL HISTORY: The patient is single, lives in [place], [place]. She is medically disabled. Again, she has 2 different people who help her do dialysis. REVIEW OF SYSTEMS: Has occasional nausea with gastroparesis. Bowels have been okay. She has not had abdominal pain. Denies dyspnea or cough. Some chest pain was reported in the Emergency Room, although she has not been having chest pain. She was having frequent pain in her legs prior to her arteriography and stents in her legs. Dialysis has generally been going okay. She states she does not use heparin with dialysis. She has not had previous problems with bleeding from her dialysis access. She is unaware of fevers, chills or sweats, although she had a fever on admission. She is uncertain about COVID exposures. PHYSICAL EXAMINATION: GENERAL: Pleasant 50-year-old female in no acute distress. VITAL SIGNS: Blood pressure 133/60, heart rate of 75, temperature 98.6. She was up to 102.7 last night. Oxygen saturation 92%. HEENT: Shows pupils are equal and reactive. Oral mucosa is moist. NECK: Supple without adenopathy, thyromegaly or JVD or bruit. She has an old scar from a right internal jugular vein tunneled dialysis catheter, which is no longer present. CHEST: Clear bilaterally. BACK: Shows no CVA tenderness. HEART: Has a regular rate and rhythm. ABDOMEN: Has active bowel sounds, although they are mildly diminished. Abdomen is not distended. Soft and nontender. EXTREMITIES: Show no peripheral edema. She has 1+ pedal pulses. No skin breakdown. Her left upper arm AV graft has active bruit; thrill is hard to feel and I suspect this is a Flixene graft. There is no active bleeding from her stick sites last night as I took the bandage off. [facility] [address] [place] [address] CONSULTATION Name: SHANNAN FRANK Room #: 354-P ADM IN .R.#: [id number] Admission: 04/18/20 Attend Phys: Miguelangel Cantu MD Discharge: Date of : 74 Report #: [id number] LABORATORY DATA: From today, sodium 130, potassium 3.6, chloride 91, bicarbonate 28, BUN 41, creatinine 8.6, glucose 479, calcium 7.8, total protein 7.6, albumin 3.3. INR 1.0. White count 8.4, hemoglobin 8.0, hematocrit 22.6. Hemoglobin has been as low as 5.6 last night. COVID was negative. Chest x-ray is clear. ASSESSMENT: 1. End-stage renal disease. She does her home hemodialysis. It sounds like she has been fairly fast I will add that. Volume is good today. Labs are fine. She says she would normally not dialyze again until 04/21/2020 and we will see how she is doing before we make the decision on when she dialyzes next. 2. Anemia, severe. She takes EPO once weekly at home. She had bleeding from her graft, which has now stopped. She got transfused last night. Hemoglobin is better today. Hemodynamically, she is stable. We will see how her hemoglobin holds. 3. Longstanding diabetes mellitus with multiple end-organ problems including her renal failure, gastropathy, peripheral neuropathy and retinopathy. 4. Hypertension, currently controlled. She is no longer hypotensive since she got the blood transfusion. 5. Five years post partial colectomy for colon carcinoma. PLAN: 1. Continue to monitor dialysis graft. 2. Recheck labs in the morning including hemoglobin. 3. I have ordered her Renvela, which was a medication that she did need. 4. We will continue to monitor for evaluation of need for future dialysis and when that will need to occur. 5. We will follow along the care of this patient. <ELECTRONICALLY SIGNED> By: Sunil Thomas MD 04/21/20 0742 1540 [id number] Sunil Thomas MD /nt
[2020-04-21 09:38] VITALS: BP 128/44
[2020-04-21] MEDS ORDERED: LEVOFLOXACIN250 MG PO (10:11)
[2020-04-21 13:15] VITALS: BP 134/57
[2020-04-21 13:27] VITALS: BP 134/57
[2020-04-21 13:35] VITALS: BP 153/63
--- NOTE | 2020-04-21 16:05 | NUR ---
INITIAL ASSESSMENT/DISCHARGE NOTE: SW reviewed chart and spoke with nursing and attending physician. Pt was admitted from home due to anemia. Pt placed in Enhanced Isolation to r/o COVID-19. Pt's test was negative. Enhanced Isolation precautions discontinued. Pt is medically stable for discharge home today. Pt with hx of ESRD and does home dialysis on Mon, Tues, Thurs and Fri. SW placed call to pt's room. No answer. SW left voice message on pt's cell phone: [phone]. Received voice message from pt stating she lives at home and does not anticipate any discharge needs. Pt discharged prior to SW follow up. No additional SW needs identified at this time, but is available to assist should needs arise.
--- NOTE | 2020-04-21 19:49 | NUR ---
PT WAS OFF ISOLATION AT 04/20/20, PT 'S VS ARE STABLE, PT DENIES PAIN AND SOB , RN RECEIVED ORDER TO DC PT TO HOME, PT REFUSED DIALYSIS AT HOSPITAL , SHE WILL DO DIALYISIS AT HOME TODAY, RN HAS GIVING DC TEACHING, PT UNDERSTANDS WELL, PT'S SON ASSEMBLER HANDBAGS PT AT 1400 .
--- NOTE | 2020-04-23 10:37 | NUR ---
SW received call from pt yesterday stating her home dialysis is coordinated through the [facility] ( ). KIA spoke with Arielle at the dialysis clinic and faxed clinical info/COVID test results and discharge orders. No additional SW needs identified, but is available to assist should needs arise.
== END 2020-04-21 14:05 | disposition home or self-care (01) | DRG 314 ==
LOC: ER 20:16 → 3W 22:56 → EROBS 22:56 → 3W 04-19 02:01
PROVIDERS: Emergency Medicine; Nurse Practitioner Family; ADMIT Internal Medicine; ATTEND Internal Medicine
PROC: 30233N1 Transfusion of Nonautologous Red Blood Cells into Peripheral Vein, Percutaneous Approach (ICD-10-PCS; principal; 2020-04-19)
DX: T82.838A Hemorrhage due to vascular prosthetic devices, implants and grafts, initial encounter (principal); A41.9 Sepsis, unspecified organism; N18.6 End stage renal disease; J18.9 Pneumonia, unspecified organism; D62 Acute posthemorrhagic anemia; I13.2 Hypertensive heart and chronic kidney disease with heart failure and with stage 5 chronic kidney disease, or end stage renal disease; K92.1 Melena; K21.9 Gastro-esophageal reflux disease without esophagitis; E11.22 Type 2 diabetes mellitus with diabetic chronic kidney disease; E11.21 Type 2 diabetes mellitus with diabetic nephropathy; F41.9 Anxiety disorder, unspecified; G89.29 Other chronic pain; I50.9 Heart failure, unspecified; G51.0 Bell's palsy; Y83.2 Surgical operation with anastomosis, bypass or graft as the cause of abnormal reaction of the patient, or of later complication, without mention of misadventure at the time of the procedure; E11.51 Type 2 diabetes mellitus with diabetic peripheral angiopathy without gangrene; Z20.828 Contact with and (suspected) exposure to other viral communicable diseases; Y92.89 Other specified places as the place of occurrence of the external cause; Z85.038 Personal history of other malignant neoplasm of large intestine; Z98.891 History of uterine scar from previous surgery; Z86.73 Personal history of transient ischemic attack (TIA), and cerebral infarction without residual deficits; Z90.49 Acquired absence of other specified parts of digestive tract; Z88.1 Allergy status to other antibiotic agents; Z88.5 Allergy status to narcotic agent; Z88.0 Allergy status to penicillin; Z88.8 Allergy status to other drugs, medicaments and biological substances; Z79.4 Long term (current) use of insulin; Z79.82 Long term (current) use of aspirin; Z79.899 Other long term (current) drug therapy
CPT/HCPCS: 10879

== ENCOUNTER → 2020-04-24 | Outpatient (CLI) | payer OTHER ==
[~2020-04-24] MED LIST changes: +CALCIUM ACETAT667 MG PO; +EPO INJECTION; +FUROSEMIDE 40 M40 MG PO; +ISOSORBIDE DINITRATE PO; +LEVOFLOXACIN250 MG PO; +NORVASC10 MG PO; +RENVELA800 MG PO
== END ==
LOC: SJCVC 11:31
PROVIDERS: ATTEND Nuclear Medicine Nuclear Cardiology
DX: I73.9 Peripheral vascular disease, unspecified (principal); I13.2 Hypertensive heart and chronic kidney disease with heart failure and with stage 5 chronic kidney disease, or end stage renal disease; I50.9 Heart failure, unspecified; E11.22 Type 2 diabetes mellitus with diabetic chronic kidney disease; E11.40 Type 2 diabetes mellitus with diabetic neuropathy, unspecified; N18.6 End stage renal disease; G62.9 Polyneuropathy, unspecified; C18.2 Malignant neoplasm of ascending colon; M54.5 Low back pain

== ENCOUNTER 2020-07-14 01:21 | Inpatient (IN) | payer OTHER ==
[~2020-07-14] VITALS: Ht 157.5 cm; Wt 68.5 kg
[2020-07-14] VITALS (7 sets, daily range): BP systolic 135–181; BP diastolic 58–75
--- NOTE | 2020-07-14 02:10 | NUR ---
PT WOULD ONLY ALLOW IV STICK IN RIGHT SHOULDER OR BREAST. WAS ABLE TO OBTAIN A 22G IV INTHE RIGHT BREAST UNABLE TO DRAW BLOOD. PHELBOTOMY AND AERONAUTICS COMMISSION DIRECTOR AT BEDSIDE TO ATTEMPT TO DRAW BLOOD. PT HOSTILE TO THEM WHILE THEY WERE ATTEMPTING BLOOD DRAW. PT ASKING FOR THEIR NAMES WHEN THEY EXITED ROOM. I EXPLAINED COVID SWAB TO PT AND HOW DEEP SWAB HAD TO GO, PT ASKED TO NOT WRINKLE NOSE PT WOUILD NOT AND THEN GRABBED MY ARM WHILE I WAS SWABBING HER. PT THEN DEMANDED THAT I LEFT HER DO THE SECOND SWAB, I EXPLAINED TO PT WHY I WAS NOT ABLE TO DO THAT AGAIN DIRECTED PT TO ATTEMPT TO RELAX NOSE AND NOT WRINKLE FOREHEAD. TOLD PT WHAT MEDICATIONS I WAS GIVING HER AND PT REFUSED REGLAN STATING THAT IT MESSED UP HER STOMACH. WHEN ASKED WHAT MEDICATION PT COULD TAKE SHE STATED WHAT DO YOU MEAN. I STATED THAT SHE HAS PREVIOUSLY SAID THAT SHE DID NOT WANT ZOFRAN BECAUSE IT DID NOT WORK AND THAT SHE HAD JUST REFUSED THE REGLAN SO I NEEDED TO KNOW WHAT MEDICATION SHE WANTED SO THAT I COULD LET THE DR KNOW. PT NOW CALLING THE NURSES STATION ON HER CELL PHONE.
--- NOTE | 2020-07-14 02:36 | NUR ---
ENTERED PT ROOM TO ADMINISTER IM PHENERGAN SHOT. PT HAD PHONE LAYING ON HER CHEST BENEATH BLANKETS, RED TIMER AT TOP OF SCREEN INDICATING THAT THE PHONE WAS RECORDING. PT ASKING ABOUT OXYGEN EXPLAINED TO PT THAT HER OXYGEN SATURATION WAS 97% AND THE INDICATION FOR SUPLIMENTAL OXYGEN WAS A SAT LESS THAN 93%. I EXPLAINED TO THE PT THAT I WOULD MONITOR HER OXYGEN AND IF IT DROPPED I WOULD NOTIFY THE PROVIDER AND GET AN ORDER FOR SUPPLIMENTAL OXYGEN. ATTEMPTED TO PLACE PT SHIRT AND SLIPPERS IN A PT BELONGINGS BAG AND PLACE IT IN THE CHAIR PT REFUSED TO HAND ME HER SHIRT OR ALLOE ME TO LIFT BLANKET TO TAKE SHIRT AND REQUESTED I PLACE HER SLIPPERS ON HER BED. I NOTIFIED CLASSIFYING MACHINE OPERATOR THAT PT WAS RECORDING ON HER PHONE
[2020-07-14 02:47] LABS: ANION GAP 14 mmol/L (7-16); BUN 43 mg/dL (7-18); CALCIUM 8.8 mg/dL (8.5-10.1); CHLORIDE 95 mmol/L (98-107); CO2 25 mmol/L (21-32); CREATININE 10.1 mg/dL (0.6-1.0); GLUCOSE 208 mg/dL (74-106); SODIUM 134 mmol/L (136-145)
[2020-07-14 02:48] LABS: POTASSIUM 4.3 mmol/L (3.5-5.1)
[2020-07-14 02:57] LABS: ALBUMIN 3.1 g/dL (3.4-5.0); DIRECT BILIRUBIN < 0.1 mg/dL (<0.1-0.2); SGOT 35 U/L (15-37); SGPT 13 U/L (30-65); TOTAL BILIRUBIN 0.3 mg/dL (0.2-1.0); TOTAL PROTEIN 7.9 g/dL (6.4-8.2); TROPONIN-I <0.06 ng/mL (<0.06)
[2020-07-14 04:49] LABS: ABSOLUTE NEUTROPHILS 7.1 thou/uL (1.4-8.2); BASOPHILS 0.3 % (0.0-2.0); EOSINOPHILS 0.6 % (0.0-3.0); HEMATOCRIT 30.3 % (37.0-47.0); HEMOGLOBIN 9.4 gm/dL (12.0-15.0); LYMPHOCYTES 9.8 % (24.0-44.0); MCH 27.7 pg (26.0-34.0); MCHC 31.1 g/dL (28.0-37.0); MCV 89.1 fL (80.0-100.0); MONOCYTES 4.5 % (1.0-8.0); PLATELET COUNT 295 thou/uL (150-400); POLYS 84.8 % (36.0-66.0); RDW 18.1 % (10.5-14.5); WBC 8.4 thou/uL (4.0-11.0)
--- NOTE | 2020-07-14 07:45 | EKG ---
[address] [address] ELECTROCARDIOGRAM REPORT Name: SHANNAN FRANK Room #: 360-P ADM IN M.R.#: [id number] Admission: 07/14/20 Attend Phys: Miguelangel Catnu MD Discharge: Date of : 74 Report #: [id number] [facility] ED Test Date: 2020-07-14 Test Time: 01:26:35 Pat Name: SHANNAN FRANK Department: Room: 360 Gender: F Machine Stemmer: SHANNAN : 1970 Requested By: Carmela Hopkins Order Number: [id number] MD: Morgan James Measurements Intervals [place] Rate: 91 P: 40 NE: 139 QRS: 5 QRSD: 92 T: 42 QT: 387 QTc: 477 Interpretive Statements Sinus rhythm Probable left atrial enlargement Left ventricular hypertrophy Compared to ECG 04/18/2020 21:05:41 LVH is now present Electronically Signed On 07-14-2020 7:45:46 CORE DRILLER HELPER by Morgan James [email or web address] <ELECTRONICALLY SIGNED> By: Morgan James MD, [facility] 07/14/20 0745 0126 012 Morgan James MD, [facility] /EPI
--- NOTE | 2020-07-14 08:00 | NUR ---
PT ADMITTED TO 360 FROM ER AT 0625. SHE IS ALERT AND ORIENTED X4. SHE HAS BEEN APPROPRIATE SO FAR HERE ON FLOOR. BP MODERATELY ELEVATED. TEMP 102.5. UNLABORED ON 2LNC. LUNG SOUNDS DIMINISHED. NO MEDICATION ORDERS YET IN THE COMPUTER. NOTIFIED DAY SHIFT ONCOMING NS THAT HER MEDS NEEDED TO BE RECONCILED AFTER HER FRIEND EMAILS HER MEDLIST TO HER. INFORMED DAY SHIFT NS PT WAS NOT FULLY ADMITTED AND ADMISSION ASSESSMENT NEEDED TO BE COMPLETED. INSTRUCTED PT ON FALL PRECAUTIONS, CALL LIGHT, PHONE, ORIENTED PT TO .
[2020-07-14] MEDS ORDERED: ISORDIL10 MG PO (09:19)
[2020-07-14 10:00] LABS: FOLIC ACID 49.9 ng/mL (8.6-58.9)
--- NOTE | 2020-07-14 16:04 | NUR ---
INITIAL ASSESSMENT: SW reviewed chart and spoke with nursing and attending physician. Pt was admitted from home due to dsypnea. Pt placed in Enhanced Isolation due to COVID-19. ID consult ordered. Pt with hx of ESRD and does home dialysis on Mon, Tu, Th and Tue. SW placed call to pt's room. No answer. SW left voice message on pt's cell phone: [phone]. Per chart, pt lives at home. Pt is normally alert/orientated x 4. Pt was hospitalized at [facility] in April 2020. Pt's home dialysis is coordinated through the [facility] ( ). SW to follow up with pt at a later time. SW is following to assist as needed with discharge planning.
--- NOTE | 2020-07-14 19:50 | NUR ---
NOTED TO BE TEARY THIS AM. WILL CONT WITH PLAN OF CARE.
[2020-07-15 02:33] VITALS: BP 134/44
[2020-07-15 03:36] VITALS: BP 174/83
[2020-07-15 05:31] LABS: ABSOLUTE NEUTROPHILS 8.1 thou/uL (1.4-8.2); BASOPHILS 0.1 % (0.0-2.0); HEMATOCRIT 32.2 % (37.0-47.0); HEMOGLOBIN 10.2 gm/dL (12.0-15.0); LYMPHOCYTES 7.5 % (24.0-44.0); MCH 27.8 pg (26.0-34.0); MCHC 31.8 g/dL (28.0-37.0); MCV 87.6 fL (80.0-100.0); MONOCYTES 4.3 % (1.0-8.0); PLATELET COUNT 316 thou/uL (150-400); POLYS 88.1 % (36.0-66.0); RBC 3.68 mil/uL (4.20-5.00); RDW 18.1 % (10.5-14.5); WBC 9.2 thou/uL (4.0-11.0)
[2020-07-15 05:52] LABS: ALBUMIN 2.5 g/dL (3.4-5.0); CALCIUM 8.7 mg/dL (8.5-10.1); CREATININE 10.9 mg/dL (0.6-1.0); MAGNESIUM 2.4 mg/dL (1.8-2.4); PHOSPHORUS 5.7 mg/dL (2.5-4.9); POTASSIUM 3.9 mmol/L (3.5-5.1)
--- NOTE | 2020-07-15 08:06 | HC ---
[facility] [place] [address] CONSULTATION Name: SHANNAN FRANK Room #: 360-P ADM IN M.R.#: [id number] Admission: 07/14/20 Attend Phys: Miguelangel Cantu MD Discharge: Date of : 74 Report #: [id number] THIS REPORT FOR: cc: Bryanna Otto MD, Stany A. MD Barry, Joseph W. MD ~ DATE OF SERVICE: 07/14/2020 INFECTIOUS DISEASE CONSULTATION ATTENDING PHYSICIAN: Dr. Cantu. REASON FOR EVALUATION: COVID-19 infection, complicated by pneumonitis and respiratory failure in the setting of chronic renal failure, on dialysis. HISTORY OF PRESENT ILLNESS: Chart reviewed, patient examined. This is a 50-year-old female with known diabetes mellitus type 2, this has been complicated by end-stage renal disease, on dialysis, who dialyzes at home actually. She noted over the last few days had onset of nausea, which has been refractory, emesis and also diarrhea. Did experience fevers as well, poor p.o. intake, did have a bit of a cough. She did feel mildly short of breath, although it was not prominent. She was evaluated, confirmed to be COVID positive, although she had had previous testing on 07/08 that was positive as well. Chest x-ray showed mild pulmonary venous prominence with perihilar and basilar interstitial infiltrates. Procalcitonin was elevated at 3.57 and D-dimer elevated 2.42. She has been febrile during the extent of her visit up to 102.8 temperature-pulse dissociation in the 80s, blood pressure has been elevated. She has required supplemental oxygen 2 liters per nasal cannula. She is empirically started on therapy with azithromycin. ALLERGIES: LISTED TO PENICILLINS, CODEINE, OXYCODONE, VENLAFAXINE, MELATONIN. CURRENT MEDICATIONS: Include pantoprazole, atorvastatin, insulin, carvedilol, sevelamer, cyclobenzaprine, ipratropium, albuterol inhaler, insulin lispro, amlodipine, clopidogrel, aspirin, torsemide, calcitriol, linagliptin, alprazolam, started on dexamethasone, zinc, cholecalciferol, ascorbic acid, guaifenesin, azithromycin. PAST MEDICAL HISTORY: Diabetes mellitus type 2 complicated by end-stage renal disease, on dialysis; previous history of stroke; left sided weakness; cardiomyopathy; congestive heart failure; chronic anemia; hypertension; previous history of Rainey's palsy. SOCIAL HISTORY: Nonsmoker, rare ethanol, [place] [address] CONSULTATION Name: SHANNAN FRANK Room #: 360-P [facility] IN M.R.#: [id number] Admission: 07/14/20 Attend Phys: Miguelangel Cantu MD Discharge: Date of : 74 Report #: [id number] FAMILY HISTORY: Noncontributory. REVIEW OF SYSTEMS: Otherwise, unremarkable with the exception of the above. PHYSICAL EXAMINATION: GENERAL: She appears chronically ill, undernourished. She is lethargic, appears quite weak. She is lucid. VITAL SIGNS: Temperature 102.8 earlier, pulse 87, respirations 22, blood pressure 173/75. SKIN: Warm, dry, no rashes. HEENT: Normocephalic. Extraocular muscles intact. Nasal cannula in place. NECK: Supple. LUNGS: Diminished breath sounds, bilateral scattered crackles. She has coarse breath sounds. HEART: Regular. I do not appreciate any murmur. ABDOMEN: Mildly distended, soft, nontender. GENITOURINARY AND RECTAL: Deferred. LABORATORY DATA: As described above. Electrolytes: Sodium 134, potassium 4.3, chloride 95, bicarbonate 25, anion gap of 14, BUN and creatinine 43 and 10.1, glucose of 208. LFTs unremarkable. Albumin 3.1, total protein 7.9. Estimated GFR of 5. Lactic acid 1.7. CBC: White count of 8.4, H and H 9.4 and 30.3, platelets of 295. Differential unremarkable. Chest x-ray as described above, mild cardiomegaly in addition to the bilateral infiltrates. Procalcitonin 3.57. ASSESSMENT: COVID-19 infection, complicated by pneumonitis, respiratory failure, also has end-stage renal disease, on dialysis. I suspect pneumonitis may be multifactorial, can entirely exclude some degree of pulmonary edema with the fevers high-grade, raises question of secondary bacterial pneumonitis, certainly at risk given her overall status. We will adjust antibacterial therapy. Add directed treatment for coronavirus. She remains quite tenuous at this point, would not be surprised if she has deterioration before she improves. Continue to monitor expectantly. <ELECTRONICALLY SIGNED> By: Silvano Coronel MD 07/15/20 0806 1139 1226 Silvano Coronel MD /nt
[2020-07-15 08:07] VITALS: BP 148/59
[2020-07-15 08:29] LABS: ALBUMIN 2.6 g/dL (3.4-5.0); DIRECT BILIRUBIN < 0.1 mg/dL (<0.1-0.2); SGOT 21 U/L (15-37); SGPT 12 U/L (14-59); TOTAL BILIRUBIN 0.4 mg/dL (0.2-1.0); TOTAL PROTEIN 7.3 g/dL (6.4-8.2)
--- NOTE | 2020-07-15 15:43 | NUR ---
SW reviewed chart and spoke with nursing and attending physician. Pt remains in Enhanced Isolation due to COVID-19. Pt has been afebrile and on 1L of O2. Pt to have Remdesivir after dialysis. Pt is on Ivermectin. SW placed call to pt's room. No answer. Plan is for pt to discharge home when medically stable. SW is following to assist as needed with discharge planning.
--- NOTE | 2020-07-15 17:37 | NUR ---
PATIENT HAS BEEN REFUSING NUMEROUS CARES TODAY. SHE REFUSED DIALYSIS DESPITE OBJECTIONS FROM DRS, NURSE AND DIALYSIS CREW. STATES SHE DOES NOT FEEL LIKE HAVING DIALYSIS TODAY. EXPLAINED RISK OF NOT DIALYSING TO HER AND SHE STILL REFUSED. SHE REFUSED TO WORK WITH THERAPY (OT/PT) STATING SHE DOES NOT FEEL LIKE WORKING WITH THEM. PATIENT WENT TO [facility] FOR LUNG SCAN AND ASSEMBLER CONVERTIBLE TOP REPORTED TO NURSE THAT SHE WENT TO BATHROOM AND HAD A FALL. TALKED WITH PATIENT AND STATES SHE IS OK NO PAIN OR DISTRESS. NO OPEN SKIN. DID NOT HIT HER HEAD ANYWHERE. WILL CONT WITH TO MONITOR. HER MENTATION REMAINS STABLE AT THIS TIME. SHE IS ALERT ORIENTED X4. WILL CONT WITH PLAN OF CARE.
[2020-07-15 19:21] VITALS: BP 143/71
--- NOTE | 2020-07-16 03:23 | NUR ---
RESUMED CARE FOR PT AGAIN THIS EVENING. PT WILL NOT HAVE DIALYSIS 07/16 DUE TO FULL SCHEDULE ON DCI SIDE. PT MAY HAVE DIALYSIS ON 07/17. PT STILL REFUSING MEDICATIONS AND SAYING WHICH ONES SHE WILL TAKE AND NOT TAKE. PT HAD A FALL IN IR ON 07/15. PT IS X1 ASSIST. HOURLY ROUNDING. FALL AND ISOLATION PRECAUTIONS IN PLACE.
[2020-07-16 04:18] VITALS: BP 141/83
[2020-07-16 07:48] VITALS: BP 147/69
[2020-07-16 07:49] LABS: RDW 18.9 % (10.5-14.5)
[2020-07-16 07:52] LABS: HEMATOCRIT 33.5 % (37.0-47.0); HEMOGLOBIN 10.1 gm/dL (12.0-15.0); MCH 27.3 pg (26.0-34.0); MCHC 30.1 g/dL (28.0-37.0); MCV 90.8 fL (80.0-100.0); RBC 3.68 mil/uL (4.20-5.00); WBC 16.7 thou/uL (4.0-11.0)
[2020-07-16 08:06] LABS: ALBUMIN 2.7 g/dL (3.4-5.0); CALCIUM 8.7 mg/dL (8.5-10.1); PHOSPHORUS 6.7 mg/dL (2.5-4.9); POTASSIUM 3.6 mmol/L (3.5-5.1)
[2020-07-16 11:15] VITALS: BP 154/72
--- NOTE | 2020-07-16 14:40 | NUR ---
SW reviewed chart and spoke with nursing and attending physician. Pt remains in Enhanced Isolation due to COVID-19. Pt is afebrile and not requiring O2. Pt is on Ivermectin. Pt has been refusing dialysis. Plan is for pt to discharge home when medically stable. SW is following to assist as needed with discharge planning.
[2020-07-16 16:08] VITALS: BP 144/66
--- NOTE | 2020-07-16 19:17 | NUR ---
RN ASSUMED PT'S CARE AT 0700AM, PT IS A&OX3, PT'S VS ARE STABLE, PT DOES NOT HAVE SON AND PAIN AT DAY SHIFT, RN HAS REPORTED DR ABOUT PT'S REFUSED TO TAKE SOME MEDICATIONS, AND HIGH BS, NEW ORDER RECEIVED .
[2020-07-16 19:59] VITALS: BP 151/73
[2020-07-17 04:24] VITALS: BP 146/67
[2020-07-17 06:26] LABS: HEMATOCRIT 31.8 % (37.0-47.0); HEMOGLOBIN 10.2 gm/dL (12.0-15.0); MCH 27.8 pg (26.0-34.0); MCHC 31.9 g/dL (28.0-37.0); MCV 86.9 fL (80.0-100.0); RBC 3.66 mil/uL (4.20-5.00); RDW 18.9 % (10.5-14.5); WBC 17.6 thou/uL (4.0-11.0)
--- NOTE | 2020-07-17 06:27 | NUR ---
PT STILL REFUSING MEDICATIONS AND STATING THAT THEY ARE "NOT ON HER SCHEDULE". PT ASKING FOR IV PAIN MEDICATION, ALSO STATING THAT "HYDROCODONE DOES NOT WORK." DIALYSIS PERSONAL HERE TO COMPLETE HER TREATMENT AT 0530. PT REFUSED AGAIN. VOICED HER CONCERN THAT SHE WILL DO IT AT HOME. DC GOALS ACHIEVED.
[2020-07-17 07:14] LABS: ALBUMIN 2.7 g/dL (3.4-5.0); ANION GAP 20 mmol/L (7-16); BUN 90 mg/dL (7-18); CALCIUM 9.1 mg/dL (8.5-10.1); CHLORIDE 101 mmol/L (98-107); CO2 17 mmol/L (21-32); CREATININE 12.7 mg/dL (0.6-1.0); DIRECT BILIRUBIN < 0.1 mg/dL (<0.1-0.2); GLUCOSE 126 mg/dL (74-106); PHOSPHORUS 6.1 mg/dL (2.6-4.7); POTASSIUM 3.4 mmol/L (3.5-5.1); SGOT 15 U/L (15-37); SGPT 13 U/L (14-59); SODIUM 138 mmol/L (136-145); TOTAL BILIRUBIN 0.6 mg/dL (0.2-1.0); TOTAL PROTEIN 7.1 g/dL (6.4-8.2)
[2020-07-17 08:44] VITALS: BP 158/74
[2020-07-17 11:52] VITALS: BP 145/75
--- NOTE | 2020-07-17 12:21 | NUR ---
PT CONTINUES TO REFUSE DIALYSIS, PT AWARE ABOUT HER RENAL FUNCTION PANEL LEVEL UP, STATED SHE CHEO;L GET DIALYSIS WHEN SHE GETS D/C. SHE WOULD PREFER TO BE D/C TODAY/ DOCTOR ARELI MADE AWARE. WAITING FOR D/C ORDERS
--- NOTE | 2020-07-17 14:09 | NUR ---
DISCHARGE NOTE: KIA reviewed chart and spoke with nursing and attending physician. Pt remains in Enhanced Isolation. Pt is afebrile and not requiring O2. Pt continues to refuse dialysis and some medications. Pt to discharge home and resume her home dialysis. KIA spoke with pt via phone to discuss discharge plan. Pt states she will have transportation home when discharged. KIA discussed that clinical info and discharge ppwk will be sent to [facility] for review. [facility] manages pt's home dialysis. Pt agreeable. KIA faxed clinical info to [facility] and spoke with Jean-Pierre, who is pt's nurse. KIA explained that pt has been refusing dialysis and some meds. Jean-Pierre will follow up with pt after discharge. Awaiting finalized discharge orders/summary, which will be sent to [facility] when available. KIA updated pt's nurse. No additional SW needs identified at this time, but is available to assist should needs arise.
[2020-07-17 15:07] VITALS: BP 145/75
--- NOTE | 2020-07-17 15:42 | NUR ---
DISCHARGE PAPERWORK AND INSTRUCTION GIVEN TO PT. ALL PT BELONGING PACKED. IV TAKEN OUT. PT TAKEN DOWN VIA WHEELCHAIR, FAMILY HERE TO BOWLING ALLEY REFINISHER PT.
== END 2020-07-17 15:44 | disposition home or self-care (01) | DRG 871 ==
LOC: ER 01:21 → 3W 05:41 → EROBS 05:41 → 3W 06:11
PROVIDERS: Emergency Medicine; Nurse Practitioner; Specialist; ADMIT Internal Medicine; ATTEND Internal Medicine
PROC: XW033E5 Introduction of Remdesivir Anti-infective into Peripheral Vein, Percutaneous Approach, New Technology Group 5 (ICD-10-PCS; principal; 2020-07-14)
PROC: 5A1D70Z Performance of Urinary Filtration, Intermittent, Less than 6 Hours Per Day (ICD-10-PCS; 2020-07-17)
DX: A41.9 Sepsis, unspecified organism (principal); U07.1 COVID-19; J96.01 Acute respiratory failure with hypoxia; N18.6 End stage renal disease; J12.82 Pneumonia due to coronavirus disease 2019; E43 Unspecified severe protein-calorie malnutrition; I69.354 Hemiplegia and hemiparesis following cerebral infarction affecting left non-dominant side; I42.9 Cardiomyopathy, unspecified; I13.2 Hypertensive heart and chronic kidney disease with heart failure and with stage 5 chronic kidney disease, or end stage renal disease; M31.9 Necrotizing vasculopathy, unspecified; K21.9 Gastro-esophageal reflux disease without esophagitis; I50.9 Heart failure, unspecified; E11.22 Type 2 diabetes mellitus with diabetic chronic kidney disease; E78.5 Hyperlipidemia, unspecified; E11.51 Type 2 diabetes mellitus with diabetic peripheral angiopathy without gangrene; G51.0 Bell's palsy; F41.1 Generalized anxiety disorder; E11.319 Type 2 diabetes mellitus with unspecified diabetic retinopathy without macular edema; Z85.038 Personal history of other malignant neoplasm of large intestine; Z95.820 Peripheral vascular angioplasty status with implants and grafts; Z88.6 Allergy status to analgesic agent; Z88.1 Allergy status to other antibiotic agents; Z88.0 Allergy status to penicillin; Z88.8 Allergy status to other drugs, medicaments and biological substances; Z79.4 Long term (current) use of insulin; Z79.82 Long term (current) use of aspirin; Z79.899 Other long term (current) drug therapy; Z91.15 Patient's noncompliance with renal dialysis; Z99.2 Dependence on renal dialysis
CPT/HCPCS: 10879; 32100

== ENCOUNTER 2020-09-09 09:13 | Inpatient (IN) | payer OTHER ==
[~2020-09-09] VITALS: Ht 157.5 cm; Wt 67.6 kg
--- NOTE | ~2020-09-09 | HC ---
[facility] [address] CONSULTATION Name: SHANNAN FRANK Room #: 356-P ADM IN M.R.#: [id number] Admission: 09/09/20 Attend Phys: Glenn Acuña MD Discharge: Date of : 74 Report #: [id number] THIS REPORT FOR: cc: Bryanna Otto MD, Stany A. MD Al-Donovan,Elliot Keller MD ~ NEPHROLOGY CONSULTATION REASON FOR CONSULTATION: End-stage renal disease. REASON FOR PRESENTATION: Nausea, vomiting, fever, cough. HISTORY OF PRESENT ILLNESS: This is a 50-year-old with extensive past medical history including and not limited to end-stage renal disease, maintained on hemodialysis, home hemodialysis. Her end-stage renal disease was due to diabetes mellitus and hypertension. She had history of COVID-19 infection back in July. She presented with the above-mentioned symptoms to be further evaluated. The patient was at [facility] over the weekend. She was found to have significant leukocytosis with bilateral interstitial infiltrate concerning for developing pneumonia versus pulmonary edema. First COVID-19 check was negative. Second COVID-19 PCR was positive. The patient was admitted to be further evaluated. I was consulted to manage her end-stage renal disease and dialysis related issues. From the renal perspective, as stated above, the patient is known to have end-stage renal disease due to diabetes mellitus and she has been maintained on home hemodialysis since 2019. PAST MEDICAL HISTORY: 1. Diabetes mellitus. 2. Hypertension. 3. End-stage renal disease. 4. Diabetic nephropathy. 5. Diabetic retinopathy. 6. Peripheral neuropathy. 7. History of cerebrovascular accident. 8. Hemicolectomy due to colon cancer. 9. History of cerebrovascular accident. Multiple access. Dialysis access placement in the past. 10. AV fistula. ALLERGIES: LISTED TO AMOXICILLIN, CODEINE, EFFEXOR, TYLENOL NO. 3. SOCIAL HISTORY: She lives in [facility]. No drug or alcohol abuse. FAMILY HISTORY: Significant for diabetes mellitus and hypertension. MEDICATIONS: [facility] [address] [place] [address] CONSULTATION Name: SHANNAN FRANK Room #: 356-P [facility] IN M.R.#: [id number] Admission: 09/09/20 Attend Phys: Glenn Acuña MD Discharge: Date of : 74 Report #: [id number] 1. Isordil. 2. Carvedilol. 3. Amlodipine. 4. Aspirin. 5. Sevelamer. 6. Tradjenta. 7. Lantus. 8. Rosuvastatin. REVIEW OF SYSTEMS: GENERAL: Significant for fever, weakness. CARDIOVASCULAR: Significant for shortness of breath. PULMONARY: Significant for cough and shortness of breath. No hemoptysis. GASTROINTESTINAL: Significant for nausea, vomiting, diarrhea. NEUROLOGICAL: No headache, but significant lethargy and dizziness. MUSCULOSKELETAL: Myalgias. SKIN: No rash or ulcerations. PHYSICAL EXAMINATION: GENERAL: Blood pressure 149/58, temperature 39.2, pulse rate is 96, respiratory rate is 16. HEAD AND NECK: No jugular venous distention. CHEST: Bilateral crackles. CARDIOVASCULAR: No rub. ABDOMEN: Soft. EXTREMITIES: Lower extremities, no edema. LABORATORY DATA: Hemoglobin is 9.8. Sodium is 134, potassium is 4.9, BUN is 57, creatinine is 11. ASSESSMENT AND PLAN: 1. End-stage renal disease. 2. Nausea and vomiting. 3. Diabetes mellitus. 4. History of colon cancer. 5. Hypertension. 6. Arrangement for the patient was done yesterday to receive her usual hemodialysis. 7. Next dialysis tomorrow. 8. GI is following regarding her GI illness. [facility] [address] [place] [address] CONSULTATION Name: SHANNAN FRANK Room #: 356-P ADM IN M.R.#: [id number] Admission: 09/09/20 Attend Phys: Glenn Acuña MD Discharge: Date of : 74 Report #: [id number] 9. Primary team is aware of the positivity of her COVID-19 PCR. I will continue to follow. By: [id number] Elliot Victoria MD /nt
--- NOTE | ~2020-09-09 | TEE ---
[facility] [address] [place] [address] TRANSESOPHAGEAL ECHOCARDIOGRAM Name: SHANNAN FRANK Room #: 356-P ADM IN M.R.#: [id number] Admission: 09/09/20 Attend Phys: Glenn Acuña MD Discharge: Date of : 74 Report #: [id number] THIS REPORT FOR: cc: Bryanna Otto MD, Stany A. MD Lammoglia, Francisco J. MD ~ APPROVED REPORT Study performed: 09/16/2020 12:13:45 EXAM: Comprehensive 2D, Doppler, and color-flow Echocardiogram Patient Location: Bedside Room #: 356 Status: routine BSA: 1.69 HR: 83 bpm BP: 149/79 mmHg Rhythm: NSR Other Information Study Quality: Adequate Indications Cardiomyopathy. Hx: CVA, CM, PVD, ESRD, HTN, HLP, DM. 2D Dimensions RVDd: 37.75 mm IVSd: 12.06 (7-11mm) LVOT Diam: 20.23 (18-24mm) LVDd: 53.64 mm PWd: 14.39 (7-11mm) LVDs: 44.75 (25-40mm) Aortic Root: 27.93 mm Volumes Left Atrial Volume (Systole) Single Plane 4CH: 43.61 mL Single Plane 2CH: 45.81 mL LA ESV Index: 29.00 mL/m2 Aortic Valve AoV Peak Hiram.: 1.58 m/s AO Peak Gr.: 9.95 mmHg LVOT Max P.51 mmHg LVOT Max V: 1.06 m/s COSME Vmax: 2.16 cm2 [facility] [address] [place] [address] TRANSESOPHAGEAL ECHOCARDIOGRAM Name: SHANNAN FRANK Room #: 356-P [facility] IN [facility].#: [id number] Admission: 09/09/20 Attend Phys: Nohelia Torres Discharge: Date of : 74 Report #: [id number] Mitral Valve E/A Ratio: 1.4 MV Decel. Time: 142.68 ms MV E Max Hiram.: 1.24 m/s MV A Hiram.: 0.91 m/s MV PHT: 41.38 ms IVRT: 79.58 ms Pulmonary Valve PV Peak Hiram.: 1.03 m/s PV Peak Gr.: 4.20 mmHg Pulmonary Vein P Vein S: 0.78 m/s P Vein A: 0.26 m/s P Vein D: 0.71 m/s P Vein A Dur.: 114.2 msec P Vein S/D Ratio: 1.10 Tricuspid Valve TR Peak Hiram.: 2.37 m/s RAP Estimate: 5.00 mmHg TR Peak Gr.: 22.49 mmHg PA Pressure: 27.00 mmHg Left Ventricle The left ventricle is normal size. Regional wall motion is grossly normal. Mild concentric left ventricular hypertrophy. Left ventricular systolic function is mildly decreased. LVEF is 45-50%. Right Ventricle The right ventricle is normal size. The right ventricular systolic function is normal. Atria The left atrium size is normal. The right atrium size is normal. Aortic Valve The aortic valve is normal in structure. No aortic regurgitation is present. There is no aortic valvular stenosis. Mitral Valve The mitral valve is normal in structure. There is no mitral valve regurgitation noted. No evidence of mitral valve stenosis. Tricuspid Valve The tricuspid valve is normal in structure. Mild tricuspid [facility] [address] [place] [address] TRANSESOPHAGEAL ECHOCARDIOGRAM Name: FRANKSHANNAN Room #: 356-P ADM IN M.R.#: [id number] Admission: 09/09/20 Attend Phys: Nohelia Torres Discharge: Date of : 74 Report #: [id number] regurgitation. Estimated PAP is 25-30mmHg. Pulmonic Valve The pulmonary valve is normal in structure. Trace pulmonic regurgitation. Great Vessels The aortic root is normal in size. Ascending aorta is not well visualized. IVC is normal in size and collapses >50% with inspiration. Pericardium Small hemodynamically insignificant pericardial effusion. <Conclusion> The left ventricle is normal size. Mild concentric left ventricular hypertrophy. Regional wall motion is grossly normal. LVEF is 45-50%. The aortic valve is normal in structure. The mitral valve is normal in structure. The tricuspid valve is normal in structure. Mild tricuspid regurgitation. Estimated PAP is 25-30mmHg. The pulmonary valve is normal in structure. Trace pulmonic regurgitation. The aortic root is normal in size. Small hemodynamically insignificant pericardial effusion. By: [id number] Jack Martinez MD /INF
[2020-09-09 09:21] VITALS: BP 164/64
[2020-09-09 10:28] LABS: HEMATOCRIT 30.8 % (37.0-47.0); HEMOGLOBIN 9.8 gm/dL (12.0-15.0); MCH 28.1 pg (26.0-34.0); MCHC 31.7 g/dL (28.0-37.0); MCV 88.7 fL (80.0-100.0); PLATELET COUNT 253 thou/uL (150-400); RBC 3.47 mil/uL (4.20-5.00); RDW 20.6 % (10.5-14.5); WBC 14.5 thou/uL (4.0-11.0)
[2020-09-09 10:41] LABS: CALCIUM 9.1 mg/dL (8.5-10.1)
[2020-09-09 10:43] LABS: POTASSIUM 4.9 mmol/L (3.5-5.1)
[2020-09-09 10:58] LABS: ALBUMIN 2.9 g/dL (3.4-5.0); TOTAL BILIRUBIN 0.4 mg/dL (0.2-1.0); TOTAL PROTEIN 7.1 g/dL (6.4-8.2)
[2020-09-09 11:26] LABS: ABSOLUTE NEUTROPHILS 12.2 thou/uL (1.4-8.2); ANISOCYTOSIS 1+
[2020-09-09 11:27] LABS: LARGE PLATELETS OCCASIONAL
[2020-09-09 17:10] VITALS: BP 130/58
[2020-09-09 22:42] LABS: URINE BILIRUBIN NEGATIVE (Negative); URINE BLOOD 1+ (Negative); URINE CLARITY SL CLOUDY; URINE COLOR YELLOW; URINE GLUCOSE-RANDOM* 3+ (Negative); URINE KETONES TRACE (Negative); URINE LEUKOCYTES-REFLEX NEGATIVE (Negative); URINE NITRITE-REFLEX NEGATIVE (Negative); URINE PROTEIN (DIPSTICK) 3+ (Negative); URINE UROBILINOGEN 0.2 E.U./dl (0.2-1.0)
[2020-09-09 23:03] LABS: BACTERIA-REFLEX 1-9 Few /HPF (None Seen); CASTS None Seen /LPF (None Seen); CRYSTALS None Seen /LPF (None Seen); MUCUS 4-6 Moderate strn/LPF (None Seen); SQUAMOUS 4-10 Moderate /LPF (0-3); URINE RBC 3-10 Few /HPF (0-2); URINE WBC-REFLEX 0-5 Rare /HPF (0-5)
[2020-09-10 00:13] VITALS: BP 135/57
[2020-09-10 03:40] VITALS: BP 149/58
--- NOTE | 2020-09-10 04:01 | NUR ---
ASSUMED CARE OF PATIENT FROM ER AFTER DIALYSIS. FEBRILE, C/O PAIN AND NAUSEA. PAIN MEDS BRING SOME RELIEF. 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 PATIENT CONCERNED ABOUT MISSING APPOINTMENT WITH DR CHUN TODAY. STATES SHE IS SUPPOSED TO HAVE IMAGIN STUDIES OF LOWER EXTREMETIES SO THAT SHE CAN DISCONTINUE PLAVIX AND HOPEFULLY BECOME A RENAL TRANSPLANT CANDIDATE. POC GOALS ESTABLISHED, NOT PROGRESSING AT THIS TIME.
[2020-09-10 08:23] VITALS: BP 134/47
[2020-09-10 11:59] LABS: HEMATOCRIT 32.5 % (37.0-47.0); HEMOGLOBIN 10.1 gm/dL (12.0-15.0); MCH 27.7 pg (26.0-34.0); MCHC 30.9 g/dL (28.0-37.0); MCV 89.6 fL (80.0-100.0); RBC 3.63 mil/uL (4.20-5.00); WBC 12.2 thou/uL (4.0-11.0)
--- NOTE | 2020-09-10 13:18 | NUR ---
CARE ASSUMED AT 0700, PT ALERT AND ORIENTED X4, LETHERGIC AND WEAK. COMPLAINS OF GENERALIZED PAIN ANS ABD TENDERNESS. AWARE OF ABD TENDERNESS. COMPLAINS OF NAUSEA, ZOFRAN GIVEN. LOW APPETITE, ENCOURAGED TO EAT BUT BARLEY ATE ANY OF HER BREAKFAST AND LUNCH. DIALYSIS PT AND OLIGURIC. FALL PRECAUTIONS IN PLACE. WILL CONTINUE TO MONITOR.
--- NOTE | 2020-09-10 14:35 | NUR ---
INITIAL ASSESSMENT: KIA reviewed chart and spoke with nursing and attending physician. Pt was admitted from home due to nausea/vomiting. Pt placed in Enhanced Isolation due to hx COVID-19. Pt was hospitalized at [facility] in July of this year. Pt with hx of ESRD and does home dialysis on Mon, Tu, Th and Fri. KIA spoke with pt via phone. Introduced role of SW. Pt is alert/orientated. Pt states that she lives at home alone. Prior to admission, pt was independent with ADLs. No current HH services. Pt's PCP is Dr. Bryanna Boyd. Pt's home dialysis is coordinated through the [facility] ( ). Pt states she needs documentation to verify that she is currently hospitalized. Pt provided contact info for her sheep clipper, Phil Goldman at [employer] ( ). Pt gave consent for SW to contact Phil to determine what info is needed. KIA spoke with Phil, who states pt has a deposition scheduled for Tuesday, 09/12. Documentation stating pt is currently hospitalized requested, in order to have deposition rescheduled. KIA completed letter and faxed. Copy of letter placed on pt's chart. Plan is for pt to discharge home when medically stable. KIA is following to assist as needed with discharge planning.
[2020-09-10 15:24] VITALS: BP 115/57
[2020-09-10 17:07] LABS: HEP B SURFACE Ab(ANTI-HBS Reactive (()); HEPATITIS B SURFACE AG Negative (Negative)
[2020-09-10 19:45] VITALS: BP 119/60
[2020-09-11 03:25] VITALS: BP 134/62
[2020-09-11 08:36] VITALS: BP 153/93
--- NOTE | 2020-09-11 09:29 | NUR ---
AM MEDICATION NOT GIVEN DUE TO GETTING DIALYSIS HERMES. PT WANTED TO WAIT UNTIL DIALYSIS IS COMPLETED.
--- NOTE | 2020-09-11 11:00 | HC ---
[facility] [place] [address] [place] [address] CONSULTATION Name: SHANNAN FRANK Room #: 356-P ADM IN M.R.#: [id number] Admission: 09/09/20 Attend Phys: Glenn Acuña MD Discharge: Date of : 74 Report #: [id number] THIS REPORT FOR: cc: Bryanna Otto MD, Stany A. MD Barry, Joseph W. MD ~ DATE OF SERVICE: 09/10/2020 INFECTIOUS DISEASE CONSULTATION ATTENDING PHYSICIAN: Dr. Acuña. REASON FOR EVALUATION: Gram-negative septicemia. HISTORY OF SUBJECTIVE: Chart reviewed, patient examined. This is a 50-year-old known to myself had been hospitalized earlier this year in July with COVID-19 infection that was complicated by pneumonitis and respiratory failure. It is notable she has extensive medical history including diabetes mellitus complicated by vasculopathy, has end-stage renal disease, on dialysis, who generally started feeling poorly, roughly 5 days ago. Subsequently developed significant left-sided abdominal pain, mid portion as well as nausea and emesis. She has been somewhat anorexic as well. During hospitalization, she has had fever as high as 103.6. As part of the initial evaluation, blood cultures were collected, now with 2 out 2 growth of gram-negative rods. Imaging has been somewhat unrevealing thus far including CT abdomen and pelvis. As noted, procalcitonin was markedly elevated at 59.75. Chest x-ray showed mild cardiomegaly, mild interstitial opacities. She was dosed empirically with cefepime, Levaquin and vancomycin. She is generally lucid. She has no significant dyspnea at rest. She denies particular exposure history that she is aware of. ALLERGIES: PENICILLIN, CODEINE, OXYCODONE, VENLAFAXINE, MELATONIN. CURRENT MEDICATIONS: Include levofloxacin, insulin glargine, isosorbide mononitrate, amlodipine, aspirin, torsemide, cholecalciferol, calcitriol, linagliptin, pantoprazole, vancomycin, ipratropium, albuterol inhaler, carvedilol, p.r.n. analgesics and antiemetics. PAST MEDICAL HISTORY: Diabetes mellitus complicated by end-stage renal disease, on dialysis; hypertension, chronic anemia, reflux, previous history of colon cancer, previous stroke, minimal left sided weakness, cardiomyopathy, congestive heart failure, recent history of COVID infection, depression. SOCIAL HISTORY: Nonsmoker, no ethanol, no illicit drug use. [facility] [address] [place] [address] CONSULTATION Name: SHANNAN FRANK Room #: 356-P [facility] IN .R.#: [id number] Admission: 09/09/20 Attend Phys: Glenn Acuña MD Discharge: Date of : 74 Report #: [id number] FAMILY HISTORY: Noncontributory. REVIEW OF SYSTEMS: Otherwise, unremarkable 10-point review of systems. PHYSICAL EXAMINATION: GENERAL: She appears chronically ill, undernourished. She is pleasant, cooperative. She has [id number] distress. VITAL SIGNS: Temperature 98.6, T-max overnight 103.6, pulse 84, respirations 14, blood pressure 134/47. SKIN: Warm, dry, no rashes. HEENT: Normocephalic. Extraocular muscles intact. NECK: Supple. LUNGS: Diminished breath sounds. HEART: Regular. I do not appreciate murmur. ABDOMEN: Soft. There is some tenderness, in particular over the left side. No overt peritoneal signs. GENITOURINARY AND RECTAL: Deferred. LABORATORY DATA: CBC: White count 12.2, H and H 10.1 and 32.5, platelets of 238. Blood cultures 2 out 2 with gram-negative rods. Coronavirus PCR was positive, although she was noted to have positive PCR in July as well. Urinalysis, 3+ protein, 3+ glucose, 1+ blood, 0-5 white cells. Procalcitonin elevated at 59.75. Electrolytes: Sodium 134, potassium 4.9, chloride 90, bicarbonate 27, anion gap of 9, BUN and creatinine 57 and 11.0, glucose of 225, albumin 2.9, total protein of 7.1. LFTs unremarkable. Lactic acid 1.1. ASSESSMENT AND PLAN: Gram-negative septicemia in a patient with significant comorbidities including diabetes mellitus, also end-stage renal disease, on dialysis. It is not entirely clear as to the etiology, would suspect given the nausea, emesis, abdominal pain, be related to the abdominal cavity, perhaps enteritis of some sort. Urinalysis was fairly unremarkable. We will await those culture results may give us a clue and dose with Levaquin and continue vancomycin for the next 24 hours. Give additional dose of aztreonam as well given her significant allergies to beta lactams. We will add incentive spirometry. She remains tenuous, although she is not critically ill at this point. We will follow. <ELECTRONICALLY SIGNED> By: Silvano Coronel MD 09/11/20 [id number] Silvano Coronel MD /nt
--- NOTE | 2020-09-11 11:26 | NUR ---
SW reviewed chart and spoke with nursing and attending physician. Enhanced Isolation precautions have been discontinued. Pt is febrile and is on IV abx. KIA is following to assist as needed with discharge planning.
[2020-09-11 14:03] VITALS: BP 113/67
[2020-09-11 17:24] VITALS: BP 109/61
[2020-09-11 19:45] VITALS: BP 106/58
[2020-09-12 04:52] VITALS: BP 110/61
--- NOTE | 2020-09-12 07:32 | NUR ---
Requested xanax and flexeril at HS with good relief of anxiety and spasm. She stated she slept well last night though when she woke up this am she felt nauseous. Zofran given with good relief. Pt. on 2L/NC at beginning of shift then has been in room air since with O2 sat in the upper 90's. She voided per bathroom at shift change (unmeasured) stating her son helped her while she was in the shower. Bed alarm on for safety. Calls appropriately if she needs assistance.
[2020-09-12 07:38] VITALS: BP 120/62
--- NOTE | 2020-09-12 13:36 | NUR ---
KIA reviewed chart and spoke with nursing and attending physician. Pt remains on IV abx. ENT consulted today. Possible weekend discharge if pt is medically stable. SW spoke with pt via phone to discuss discharge plan. Pt asked about IR consult. Pt was scheduled to have outpatient scans done on 09/10 and follow up with Dr. Tilley on 09/11. Pt with hx of stent placement and states she is trying to qualify to be placed on the kidney transplant list. Pt states she will need a nebulizer when discharged. Pt had a script for a nebulizer from a previous ER visit, but was unable to get it ordered. Pt will need a script for a nebulizer when discharged. KIA faxed face sheet and info to [facility] for review. Notified [facility] liaison of new referral. Should pt be ready for discharge home over the weekend, script for nebulizer needs to be faxed to [facility] and finalized discharge orders/summary will need to be faxed to the [facility] dialysis clinic. KIA is following to assist as needed with discharge planning. [facility] ( ) [facility] ( )
[2020-09-12 16:02] VITALS: BP 132/106
--- NOTE | 2020-09-12 17:49 | NUR ---
PATIENT A/OX4. SECOND SET OF BLOOD CULTURES PENDING. ID FOLLOWING. CONSULT FOR ENT. PATIENT WITH LOW GRADE TEMP THIS MORNING. PRN HYDROCODONE GIVEN. PRN MICKY GIVEN FOR NAUSEA, NO VOMITING. PATIENT REPORTS INCREASING APPETITIE. HAS DIALYSIS SCHEDULED FOR TOMORROW. LETS NEEDS BE KNOWN.
[2020-09-12 20:07] VITALS: BP 136/91
--- NOTE | 2020-09-12 22:50 | NUR ---
RAMON FROM LAB CALLED WITH POSITIVE BLOOD CULTURES FOR GRAM - RODS. ALL APPROPRIATE PARTIES NOTIFIED.
[2020-09-13 04:29] VITALS: BP 122/53
--- NOTE | 2020-09-13 05:39 | NUR ---
Pt. had O2 on at 2L/NC at shift change per RT for c/o being short of breath. She verbalized feeling better after O2 use. O2 sat in the upper 90's in RA. She requested and flexeril at HS with good relief. She stated she had another good night sleep. Denies any nausea. Up with assist to commode. Bed alarm on. Making progress towards care plan goals.
[2020-09-13 07:19] VITALS: BP 123/50
[2020-09-13 12:29] VITALS: BP 127/60
[2020-09-13 15:28] VITALS: BP 122/70
[2020-09-13 17:20] LABS: ABSOLUTE NEUTROPHILS 4.7 thou/uL (1.4-8.2); BASOPHILS 0.8 % (0.0-2.0); EOSINOPHILS 4.8 % (0.0-3.0); HEMATOCRIT 30.3 % (37.0-47.0); HEMOGLOBIN 9.7 gm/dL (12.0-15.0); LYMPHOCYTES 13.4 % (24.0-44.0); MCH 28.2 pg (26.0-34.0); MONOCYTES 13.1 % (1.0-8.0); PLATELET COUNT 330 thou/uL (150-400); POLYS 67.9 % (36.0-66.0); RBC 3.44 mil/uL (4.20-5.00); RDW 20.5 % (10.5-14.5); WBC 6.9 thou/uL (4.0-11.0)
[2020-09-13 17:31] LABS: ALBUMIN 2.3 g/dL (3.4-5.0); CALCIUM 8.5 mg/dL (8.5-10.1); MAGNESIUM 2.2 mg/dL (1.8-2.4); POTASSIUM 3.7 mmol/L (3.5-5.1); TOTAL BILIRUBIN 0.2 mg/dL (0.2-1.0); TOTAL PROTEIN 6.3 g/dL (6.4-8.2)
--- NOTE | 2020-09-13 17:31 | NUR ---
RN ASSUMED PT'S CARE AT 0700AM, PT IS A&OX3, PT'S N/V AND PAIN HAVE IMPROVED, PT'S VS ARE STABLE, PT DENIES SOB BY THIS TIME, PT IS ON DIALYSIS NOW, RN HAS CALLED HOSPITAL DR TO REPORT ABNORMAL CHEST CT SCAN RESULYTS, ORDER NEW CONSULT FOR PULMONOLOGY,
[2020-09-13 20:54] VITALS: BP 130/85
--- NOTE | 2020-09-14 04:20 | NUR ---
Pt. requested hydrocodone at HS after done with dialysis. She wears O2 2L/NC intermittently when she gets short of breath (usually with exertion). She stated she is eating much better and c/o nausea or vomiting. She requested for flexeril for c/o spasm that she usually gets after dialysis.
[2020-09-14 04:43] VITALS: BP 146/71
[2020-09-14 07:45] VITALS: BP 168/75
[2020-09-14 11:38] VITALS: BP 126/62
[2020-09-14 15:32] VITALS: BP 120/67
--- NOTE | 2020-09-14 19:32 | NUR ---
RN ASSUMED PT'S CARE AT 0700AM, PT IS A&OX3, PT HAS NEW IV ABX FOR POSITIVE CULTURE , PT'S VS ARE STABLE, PT DENIES SOB AND N/V AT DAY SHIFT.
[2020-09-14 19:49] VITALS: BP 120/65
--- NOTE | 2020-09-14 22:54 | NUR ---
PT RESTING IN BED. PT USING BSC. PT HAS HISTORY OF LIMITED VISION ENCOURAGED TO CALL FOR ASSISTANCE. PT HAD SNACK. LISSA FISTULA INTACT. PRN XALEANDROX PROVIDED AT .
[2020-09-15 04:23] VITALS: BP 129/79
[2020-09-15 07:46] VITALS: BP 132/70
--- NOTE | 2020-09-15 13:17 | NUR ---
SW reviewed chart and spoke with nursing and attending physician. Pt remains on IV abx. Repeat blood cultures are pending. Plan is for pt to discharge home when medically stable. KIA is following to assist as needed with discharge planning.
[2020-09-15 14:50] VITALS: BP 119/60
--- NOTE | 2020-09-15 19:34 | NUR ---
RN ASSUMED PT'S CARE AT 0700AM, PT IS A&OX3, PT'S VS ARE STABLE, PT GETS UP TO BATH ROOM BY HER SELF, PT 'S WEAKNESS AND PAIN HAVE IMPROVED, PT DENIES SOB AT DAY SHIFT.
[2020-09-15 19:39] VITALS: BP 128/45
--- NOTE | 2020-09-15 22:14 | NUR ---
PT UP IN BED WATCHING TV, REARRANGING ITEMS. PT STEADY GAIT INDEPENDENT. PLANS FOR DC TOMORROW AFTER DIALYSIS. PT C/O CONSTIPATION HAD MIRALAX ON DAY SHIFT, HAD PRUNE JUICE THIS EVENING. PT HAD OUTSIDE FOOD FOR HS SNACKS.
[2020-09-16 04:40] VITALS: BP 147/79
[2020-09-16 08:10] VITALS: BP 119/76
[2020-09-16] MEDS ORDERED: LEVOFLOXACIN500 MG PO ×2 (13:24→16:56)
--- NOTE | 2020-09-16 14:59 | 2DMMODE ---
[facility] [place] [address] 2 D/M-MODE ECHOCARDIOGRAM Name: SHANNAN FRANK Room #: 356-P ADM IN M.R.#: [id number] Admission: 09/09/20 Attend Phys: Glenn Acuña MD Discharge: Date of : 74 Report #: [id number] THIS REPORT FOR: cc: Bryanna Otto MD, Stany A. MD Lammoglia, Francisco J. MD Barry,Silvano Ferraro MD ~ Sex/Age : F/50Y Height/Weight : 157.5cm/68.0kg Patient Name : SHANNAN FRANK Study Date : 2020-09-16 BSA : 1.69? Requesting Name : ECHO STANDARD W/O CONTRAST Date of : 1970 Request Doctor : VARGHESE Department : CARD --< Approved Report > Study performed: 09/16/2020 12:13:45 EXAM: Comprehensive 2D, Doppler, and color-flow Echocardiogram Patient Location: Bedside Room #: 356 Status: routine BSA: 1.69 HR: 83 bpm BP: 149/79 mmHg Rhythm: NSR Other Information Study Quality: Adequate Indications Cardiomyopathy. Hx: CVA, CM, PVD, ESRD, HTN, HLP, DM. 2D Dimensions RVDd: 37.75 mm IVSd: 12.06 (7~11mm) LVOT Diam: 20.23 (18~24mm) LVDd: 53.64 mm PWd: 14.39 (7~11mm) LVDs: 44.75 (25~40mm) Aortic Root: 27.93 mm Volumes [facility] [place] [address] [place] [address] 2 D/M-MODE ECHOCARDIOGRAM Name: SHANNAN FRANK Room #: 356-P [facility] IN .R.#: [id number] Admission: 09/09/20 Attend Phys: Nohelia Torres Discharge: Date of : 74 Report #: [id number] Left Atrial Volume (Systole) Single Plane 4CH: 43.61 mL Single Plane 2CH: 45.81 mL LA ESV Index: 29.00 mL/m2 Aortic Valve AoV Peak Hiram.: 1.58 m/s AO Peak Gr.: 9.95 mmHg LVOT Max P.51 mmHg LVOT Max V: 1.06 m/s COSME Vmax: 2.16 cm2 Mitral Valve E/A Ratio: 1.4 MV Decel. Time: 142.68 ms MV E Max Hiram.: 1.24 m/s MV A Hiram.: 0.91 m/s MV PHT: 41.38 ms IVRT: 79.58 ms Pulmonary Valve PV Peak Hiram.: 1.03 m/s PV Peak Gr.: 4.20 mmHg Pulmonary Vein P Vein S: 0.78 m/s P Vein A: 0.26 m/s P Vein D: 0.71 m/s P Vein A Dur.: 114.2 msec P Vein S/D Ratio: 1.10 Tricuspid Valve TR Peak Hiram.: 2.37 m/s RAP Estimate: 5.00 mmHg TR Peak Gr.: 22.49 mmHg PA Pressure: 27.00 mmHg Left Ventricle The left ventricle is normal size. Regional wall motion is grossly normal. Mild concentric left ventricular hypertrophy. Left ventricular systolic function is mildly decreased. LVEF is 45-50%. Right Ventricle The right ventricle is normal size. The right ventricular systolic function is normal. Atria The left atrium size is normal. The right atrium size is normal. Aortic Valve The aortic valve is normal in structure. No aortic regurgitation is present. There is no aortic valvular stenosis. [facility] [address] [place] [address] 2 D/M-MODE ECHOCARDIOGRAM Name: SHANNAN FRANK Room #: 356-P [facility] IN ..#: [id number] Admission: 09/09/20 Attend Phys: Nohelia Torres Discharge: Date of : 74 Report #: [id number] Mitral Valve The mitral valve is normal in structure. There is no mitral valve regurgitation noted. No evidence of mitral valve stenosis. Tricuspid Valve The tricuspid valve is normal in structure. Mild tricuspid regurgitation. Estimated PAP is 25-30mmHg. Pulmonic Valve The pulmonary valve is normal in structure. Trace pulmonic regurgitation. Great Vessels The aortic root is normal in size. Ascending aorta is not well visualized. IVC is normal in size and collapses >50% with inspiration. Pericardium Small hemodynamically insignificant pericardial effusion. <Conclusion> The left ventricle is normal size. Mild concentric left ventricular hypertrophy. Regional wall motion is grossly normal. LVEF is 45-50%. The aortic valve is normal in structure. The mitral valve is normal in structure. The tricuspid valve is normal in structure. Mild tricuspid regurgitation. Estimated PAP is 25-30mmHg. The pulmonary valve is normal in structure. Trace pulmonic regurgitation. The aortic root is normal in size. Small hemodynamically insignificant pericardial effusion. Electronically Approved : 09/16/2020 14:57:21 By: [id number] Jack Martinez MD /JANETT
[2020-09-16 15:15] VITALS: BP 125/62
--- NOTE | 2020-09-16 15:22 | NUR ---
DISCHARGE NOTE: KIA reviewed chart and spoke with nursing and attending physician. Pt is medically stable for discharge home today. SW met with pt at bedside to discuss discharge. Pt is aware and in agreement with discharge plan. Pt has transportation home. Awaiting finalized discharge orders to fax to the [facility]. KIA spoke with Cesilia at [facility] who states she will contact pt's PCP to order nebulizer. Pt reports she has a hx of asthma, which would qualify her for a nebulizer. [facility] to contact pt to coordinate delivery of nebulizer, once info is obtained form pt's PCP. No additional SW needs identified at this time, but is available to assist should needs arise.
[2020-09-16] MEDS ORDERED: IPRAT-ALBUT 0.5-3 ML INH (16:07)
[2020-09-16] MEDS ORDERED: PROTONIX 20 MG20 M1 PO (16:07)
[2020-09-16] MEDS ORDERED: MIRALAX17 GM PO (16:07)
[2020-09-16 16:49] VITALS: BP 125/62
[2020-09-16 16:53] VITALS: BP 125/62
--- NOTE | 2020-09-19 10:33 | NUR ---
KIA received call from pt stating she has not yet been contacted by Padmini regarding nebulizer. KIA contacted [facility] liaison, Nilay, to request follow up with pt. Per Nilay, Padmini is awaiting documentation from pt's PCP office. [facility] will contact pt to provide update. KIA is available to assist should needs arise.
== END 2020-09-16 17:29 | disposition home or self-care (01) | DRG 871 ==
LOC: ER 09:13 → EROBS 11:40 → 3W 11:40
PROVIDERS: Emergency Medicine; Hospitalist; Internal Medicine; Nurse Practitioner; ADMIT Hospitalist; ATTEND Hospitalist
PROC: 5A1D70Z Performance of Urinary Filtration, Intermittent, Less than 6 Hours Per Day (ICD-10-PCS; principal; 2020-09-13)
PROC: 5A1D70Z Performance of Urinary Filtration, Intermittent, Less than 6 Hours Per Day (ICD-10-PCS; 2020-09-16)
DX: A41.52 Sepsis due to Pseudomonas (principal); J96.01 Acute respiratory failure with hypoxia; N18.6 End stage renal disease; U07.1 COVID-19; I42.9 Cardiomyopathy, unspecified; I13.2 Hypertensive heart and chronic kidney disease with heart failure and with stage 5 chronic kidney disease, or end stage renal disease; M31.9 Necrotizing vasculopathy, unspecified; K21.9 Gastro-esophageal reflux disease without esophagitis; E78.5 Hyperlipidemia, unspecified; F41.9 Anxiety disorder, unspecified; E11.51 Type 2 diabetes mellitus with diabetic peripheral angiopathy without gangrene; R91.1 Solitary pulmonary nodule; E11.65 Type 2 diabetes mellitus with hyperglycemia; E11.319 Type 2 diabetes mellitus with unspecified diabetic retinopathy without macular edema; F32.9 Major depressive disorder, single episode, unspecified; E11.22 Type 2 diabetes mellitus with diabetic chronic kidney disease; G51.0 Bell's palsy; I50.9 Heart failure, unspecified; Z79.4 Long term (current) use of insulin; Z86.73 Personal history of transient ischemic attack (TIA), and cerebral infarction without residual deficits; Z95.820 Peripheral vascular angioplasty status with implants and grafts; Z88.6 Allergy status to analgesic agent; Z88.1 Allergy status to other antibiotic agents; Z88.0 Allergy status to penicillin; Z88.8 Allergy status to other drugs, medicaments and biological substances; Z86.16 Personal history of COVID-19; Z83.3 Family history of diabetes mellitus; Z82.49 Family history of ischemic heart disease and other diseases of the circulatory system; Z90.49 Acquired absence of other specified parts of digestive tract; Z85.038 Personal history of other malignant neoplasm of large intestine; Z79.82 Long term (current) use of aspirin; Z79.899 Other long term (current) drug therapy; Z87.11 Personal history of peptic ulcer disease; Z99.2 Dependence on renal dialysis
CPT/HCPCS: 10879; 32100

== ENCOUNTER → 2020-10-01 | Outpatient (CLI) | payer OTHER ==
[~2020-10-01] MED LIST changes: +IPRAT-ALBUT 0.5-3 ML INH; +LEVOFLOXACIN500 MG PO; +PROTONIX 20 MG20 M1 PO
== END ==
LOC: SJCVCIMAG 08:09
PROVIDERS: ATTEND Nuclear Medicine Nuclear Cardiology
DX: I65.23 Occlusion and stenosis of bilateral carotid arteries (principal); I70.201 Unspecified atherosclerosis of native arteries of extremities, right leg; E11.51 Type 2 diabetes mellitus with diabetic peripheral angiopathy without gangrene; E11.22 Type 2 diabetes mellitus with diabetic chronic kidney disease; I12.0 Hypertensive chronic kidney disease with stage 5 chronic kidney disease or end stage renal disease; N18.6 End stage renal disease; E11.40 Type 2 diabetes mellitus with diabetic neuropathy, unspecified; F41.9 Anxiety disorder, unspecified; Z86.16 Personal history of COVID-19; G40.909 Epilepsy, unspecified, not intractable, without status epilepticus; Z86.73 Personal history of transient ischemic attack (TIA), and cerebral infarction without residual deficits; Z88.1 Allergy status to other antibiotic agents; Z88.0 Allergy status to penicillin; Z88.8 Allergy status to other drugs, medicaments and biological substances; Z79.899 Other long term (current) drug therapy; Z79.4 Long term (current) use of insulin; Z79.82 Long term (current) use of aspirin

== ENCOUNTER 2020-11-26 22:06 | Inpatient (IN) | payer OTHER ==
[~2020-11-26] VITALS: Ht 157.5 cm; Wt 71.7 kg
[~2020-11-26 22:06] MED LIST changes: +IMDUR 30 MG TAB30 M1 PO
[2020-11-26 22:30] VITALS: BP 176/67
[2020-11-26 23:27] LABS: URINE BILIRUBIN NEGATIVE (Negative); URINE BLOOD 2+ (Negative); URINE CLARITY SL CLOUDY; URINE COLOR YELLOW; URINE GLUCOSE-RANDOM* 2+ (Negative); URINE KETONES NEGATIVE (Negative); URINE LEUKOCYTES-REFLEX TRACE (Negative); URINE NITRITE-REFLEX NEGATIVE (Negative); URINE PROTEIN (DIPSTICK) 3+ (Negative); URINE UROBILINOGEN 0.2 E.U./dl (0.2-1.0)
[2020-11-26 23:43] LABS: BACTERIA-REFLEX 1-9 Few /HPF (None Seen); CASTS None Seen /LPF (None Seen); CRYSTALS None Seen /LPF (None Seen); MUCUS 4-6 Moderate strn/LPF (None Seen); SQUAMOUS 4-10 Moderate /LPF (0-3); URINE WBC-REFLEX 0-5 Rare /HPF (0-5)
[2020-11-27] VITALS (16 sets, daily range): BP systolic 75–165; BP diastolic 42–71
[2020-11-27 00:08] LABS: HEMATOCRIT 35.2 % (37.0-47.0); HEMOGLOBIN 11.3 gm/dL (12.0-15.0); MCH 28.8 pg (26.0-34.0); MCHC 32.1 g/dL (28.0-37.0); MCV 89.6 fL (80.0-100.0); PLATELET COUNT 227 thou/uL (150-400); RBC 3.93 mil/uL (4.20-5.00); RDW 20.1 % (10.5-14.5); WBC 20.3 thou/uL (4.0-11.0)
[2020-11-27 00:22] LABS: CALCIUM 9.2 mg/dL (8.5-10.1); CREATININE 8.8 mg/dL (0.6-1.0); POTASSIUM 3.6 mmol/L (3.5-5.1)
[2020-11-27 00:27] LABS: ALBUMIN 3.3 g/dL (3.4-5.0); TOTAL BILIRUBIN 0.3 mg/dL (0.2-1.0); TOTAL PROTEIN 7.8 g/dL (6.4-8.2)
[2020-11-27 00:35] LABS: ABSOLUTE NEUTROPHILS 17.3 thou/uL (1.4-8.2)
[2020-11-27 00:36] LABS: ANISOCYTOSIS 2+; PLATELET ESTIMATE NORMAL; POIKILOCYTOSIS 2+
--- NOTE | 2020-11-27 04:50 | NUR ---
Patient admission history and assessments completed. Careplan initiated. Home medication reconciliation done.
[2020-11-27 11:27] LABS: BE(vivo) -3.4 mmol/L (-2 to +3); HCO3 21.6 mmol/L (22.0-26.0); PCO2 39.1 mmHg (35.0-45.0); pH 7.361 (7.360-7.450); sO2 77.1 % (92.0-98.0)
[2020-11-27 11:28] LABS: PO2 42.9 mmHg (80.0-100.0)
--- NOTE | 2020-11-27 11:43 | NUR ---
UPON INITIAL ASSESSMENT, PATIENT VOICED FEELING SHORT OF BREATH. 02 SATS IN LOW 80'S. PAGED RESPIRATORY AND DR. DAVIS. ORDERS FOR BREATHING TREATMENTS. RT PROVIDED AND SATS IMPROVED FOR A SHORT PERIOD OF TIME. THROUGH OUT THE MORNING PATIENT PROGRESSIVLY REQUIRING INCREASED OXYGEN - O2 TITRATED FROM 2L TO 15L HIGH FLOW. SPOKE WITH ABOUT PATIENT STATUS, ORDERS FOR STAT CONSULT FOR PULMONARY. DR. QUINN HERE TO SEE PATIENT. STAT ABG DONE. ORDER FOR CHEST XRAY. PLAN TO TRANSFER TO ICU ROOM 246. CRITICIAL ABG RESULT COMMUNICATED TO DR. QUINN. UPDATED RENAL DRAdriana ON PATIENT STATUS. MACHINE JOINT CUTTER HERE TO START DIALYSIS. PATIENT AWARE AND AGREEABLE TO TRANSFER.
--- NOTE | 2020-11-27 15:46 | NUR ---
INITIAL ASSESSMENT: Received consult. KIA reviewed chart and spoke with nursing and attending physician. Pt was admitted from home due to nausea/vomiting/diarrhea. Pt was febrile. Pt was on 12L of O2 and IV abx. KIA met with pt at bedside briefly. Introduced role of SW. Pt is known to SW from previous hospitalizations. Pt with hx of ESRD and does home peritoneal dialysis 4 days a week. Pt is managed by the [facility] clinic. Pt has a cane and nebulizer at home. Pt agreeable with KIA updating her dialysis clinic. Pt was transferred to ICU and intubated after bronchoscopy. KIA spoke with Jean-Pierre at [facility]. Provided updated. Faxed clinical info for review. KIA updated REHABILITATION THERAPIST CM. KIA is following to assist as needed with discharge planning.
[2020-11-27 16:02] LABS: BE(vivo) 2.9 mmol/L (-2 to +3); HCO3 26.9 mmol/L (22.0-26.0); PCO2 38.8 mmHg (35.0-45.0); PO2 103.6 mmHg (80.0-100.0); pH 7.458 (7.360-7.450)
--- NOTE | 2020-11-27 16:04 | NUR ---
PATIENT INTUBATED AND UNSTABLE ON DIALYSIS. A STAT CENTRAL LINE WAS ORDERED- THIS PATIENT HAS A RIGHT EJ PLACED EARLIER TODAY SO A #6F TRIPLE LUMEN CENTRAL LINE WAS PLACED ON THE LEFT IJ PER HOSPITAL POLICY. LINE ADVANCED WITHOUT DIFFICULTY. A STAT CHEST XRAY SHOWS THE LINE IS DEEP- LINE WITHDREW 3CM PER RADIOLOGISTS REQUEST
--- NOTE | 2020-11-27 20:11 | NUR ---
AT APPX 1230, PT ARRIVED EMERGENTLY FROM 3W. PT ASSISTED TO ICU BED AND CONTINUOUS CARDIAC W/ SPO2 MONITORING AND FREQUENT VS INITIATED. PT AWAKE AND ALERT, IN MODERATE DISTRESS ON NRB W/ O2 15L/MIN. DR. QUINN NOTIFIED OF PT ARRIVAL AND UPDATED ON PT CONDITION. ST 120, RR 44, SPO2 78%, BP 152/71. DIALYSIS NURSE HERE FOR EMERGENT HD.
--- NOTE | 2020-11-27 20:14 | NUR ---
AT APPX 1300, PT'S SON, REMA, WAS CONTACTED TO UPDATE ON PT CONDITION AND NEED FOR EMERGENT INTUBATION W/ BRONCHOSCOPY. PT'S SON VERBALIZES UNDERSTANDING. DR. QUINN AT BEDSIDE. APPROPRIATE TIME OUT WAS PERFORMED AND PT WAS GIVEN A TOTAL OF 80MG PROPOFOL IVP AND ROCURONIUM 50MG IVP. PT WAS SUCCESSFULLY INTUBATED @ 1305 AND PLACED ON THE VENTILATOR BY RT. BRONCHOSCOPY FOLLOWED.
--- NOTE | 2020-11-27 20:17 | NUR ---
AT APPX 1600, VAT NURSE PLACED AND CLEARED LIJ TRIPLE LUMEN CATHETER FOR USE. PROPOFOL CONTINUED TO THIS SITE WITHOUT PROBLEMS AFTER REJ PIV WAS DISLODGED DUE TO EXCESSIVE MOTION BY PT. PRESSURE HELD TO REJ SITE W/ HEMOSTASIS ACHIEVED.
[2020-11-28] VITALS (30 sets, daily range): BP systolic 100–165; BP diastolic 48–77
[2020-11-28 05:29] LABS: HCO3 23.3 mmol/L (22.0-26.0); PCO2 37.4 mmHg (35.0-45.0); pH 7.412 (7.360-7.450); sO2 98.7 % (92.0-98.0)
[2020-11-28 06:14] LABS: HEMATOCRIT 29.6 % (37.0-47.0); HEMOGLOBIN 9.9 gm/dL (12.0-15.0); MCH 29.6 pg (26.0-34.0); MCHC 33.3 g/dL (28.0-37.0); RBC 3.33 mil/uL (4.20-5.00); WBC 17.8 thou/uL (4.0-11.0)
[2020-11-28 06:30] LABS: CALCIUM 8.9 mg/dL (8.5-10.1); POTASSIUM 3.8 mmol/L (3.5-5.1)
[2020-11-28 06:35] LABS: CREATININE 5.4 mg/dL (0.6-1.0)
--- NOTE | 2020-11-28 06:49 | HC ---
[facility] [address] CONSULTATION Name: SHANNAN FRANK Room #: 246-P ADM IN M.R.#: [id number] Admission: 11/27/20 Attend Phys: Sean Aguilera MD Discharge: Date of : 74 Report #: [id number] THIS REPORT FOR: cc: Bryanna Otto MD, Stany A. MD Barry, Joseph W. MD ~ DOC #: [id number] Silvano Coronel MD DATE OF SERVICE: 11/27/2020 INFECTIOUS DISEASE CONSULTATION ATTENDING PHYSICIAN: Dr. Aguilera. REASON FOR EVALUATION: Febrile illness with multiorgan dysfunction including respiratory failure, underlying gastrointestinal related complaints as well. HISTORY OF PRESENT ILLNESS: Chart reviewed. The patient examined. This is a 50-year-old known to myself who has end-stage renal disease on dialysis, underlying diabetes mellitus, has actually been hospitalized twice in the last few months. Initially in July with COVID-19 infection and again in September with pseudomonas septicemia. She has been doing reasonably well. She noted abrupt onset of nausea, emesis and diarrhea as well as some fevers, had experienced some generalized malaise as well with diminished p.o. intake. She was found to be hypoxemic and placed on supplemental oxygen. Evaluation was undertaken. Urinalysis, microscopically fairly unremarkable. Lactic acid was 0.9. Electrolytes unremarkable. Creatinine consistent with her renal failure at 8.8. LFTs unremarkable. Albumin 3.3, total protein 7.8. CBC was elevated. White count of 28.3. Repeat coronavirus testing was negative. CT abdomen and pelvis to assess nausea, emesis, mild cardiomegaly, multiple small renal calculi, fluid filled small bowel, possible ileus. No evidence of obstruction based on imaging. Some distention of the urinary bladder. Chest x-ray showed cardiomegaly, bilateral atelectasis. ABGs: pH 7.361, pCO2 of 39.1, pO2 of 42.9 on 12 liters. Followup chest x-ray, however, showed significant worsening of the appearance of the chest with diffuse pneumonitis, more prominent on the right. She was empirically treated with a combination of Levaquin and vancomycin. She is moderately encephalopathic. She appears ill, potentially toxic and encephalopathic. ALLERGIES: Listed to PENICILLIN, CAUSED SOME MOUTH AND THROAT SWELLING, but reportedly tolerates cefepime, codeine, oxycodone, venlafaxine, melatonin. CURRENT MEDICATIONS: Include levofloxacin, norepinephrine is ordered, although has not been required yet. Albuterol, lorazepam as needed, p.r.n. analgesics, antiemetics, insulin, given a dose of vancomycin. [address] [address] CONSULTATION Name: SHANNAN FRANK Room #: 246-P ADM IN M.R.#: [id number] Admission: 11/27/20 Attend Phys: Sean Aguilera MD Discharge: Date of : 74 Report #: [id number] PAST MEDICAL HISTORY: As above noted diabetes mellitus type 2, insulin requiring; hypertension; chronic anemia; previous history of colon cancer; previous stroke; left-sided paresis; cardiomyopathy; history of congestive heart failure. SOCIAL HISTORY: Nonsmoker, no ethanol, no illicit drug use. FAMILY HISTORY: Noncontributory. REVIEW OF SYSTEMS: Otherwise, limited due to her illness. Does admit to low back and leg pain, proximal lower extremities. PHYSICAL EXAMINATION: GENERAL: Appears chronically ill and undernourished. VITAL SIGNS: Temperature 99.8, T-max overnight 101.5, pulse 106, respirations 18, blood pressure 149/59, saturations 92%. SKIN: Warm, dry, no rashes. HEENT: She has a nonrebreather in place. NECK: Appears to be supple. LUNGS: Diminished breath sounds, scattered crackles. HEART: Regular, tachycardic. I do not appreciate a murmur. ABDOMEN: Mildly distended, somewhat firm. No peritoneal signs. GENITOURINARY AND RECTAL: Deferred. LABORATORY DATA: Chest x-ray as described above. CBC: White count 20.3, H and H 11.3 and 35.2, platelets of 227. Electrolytes: Sodium 137, potassium 3.6, chloride 100, bicarbonate 25, anion gap of 12, BUN and creatinine 51 and 8.8, glucose 108. LFTs unremarkable. Albumin 3.3, total protein 7.8. Urinalysis, 0-5 white cells. ASSESSMENT AND PLAN: Febrile illness complicated by pneumonitis and respiratory failure with perhaps early sepsis. She reports somewhat abrupt onset of signs and symptoms primarily GI related. Imaging was somewhat unremarkable, can include a gastroenteritis given the severity of illness. I agree with empiric antimicrobial therapy. We will limit her beta lactam exposure. Continue Levaquin and vancomycin, one-time dose, should give at 24-48 hours. We will await blood culture results. Certainly on dialysis, at risk for septicemia. She has had 1 fairly recently. Also, consider aspiration pneumonitis. We will check pneumococcal urinary antigen. Check MRSA. She remains quite tenuous at this point, noted likely requirement of intubation. MD JOSE LUIS Murphy/RASHAAD [facility] [address] [place] [address] CONSULTATION Name: SHANNAN FRANK Room #: 246-P ADM IN M.R.#: [id number] Admission: 11/27/20 Attend Phys: Sean Aguilera MD Discharge: Date of : 74 Report #: [id number] <ELECTRONICALLY SIGNED> By: Silvano Coronel MD 11/28/20 0649 1235 [id number] Silvano Coronel MD /nt
--- NOTE | 2020-11-28 09:20 | NUR ---
Pt writing on white board asking for xanax, which she does take at home. Pt reassured she is on IV medicine for sedation, but RN would address with team when they round.
[2020-11-28] MEDS ORDERED: RENVELA800 MG PO (12:08)
--- NOTE | 2020-11-28 13:34 | NUR ---
discussed during los and am rounds. she remains on vent, possible cpap trail. when medical stable will dc home possible over the weekend bedside nurse to call [facility] to let them know she going back home # [phone], fax dc orders to # [phone] dcp home with cont peritoneal dialysis at home. if need ride home can use cab vouch or if needs wheel chair call express to set up transportation # [phone]
--- NOTE | 2020-11-28 19:36 | NUR ---
Pt sleeping comfortably. RN reminded family multiple times, still had to be asked to leave at 1815. 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 Pt reports anxiety even with Versed pushes, pain with Fentanyl gtt and Morphine pushes. Will encourage family to calm pt tomorrow during breathing trials so pt can possibly be extubated.
[2020-11-29] VITALS (32 sets, daily range): BP systolic 88–188; BP diastolic 39–91
[2020-11-29 03:06] LABS: HEP B SURFACE Ab(ANTI-HBS Reactive (()); HEPATITIS B SURFACE AG Negative (Negative)
[2020-11-29 05:00] LABS: HEMATOCRIT 33.2 % (37.0-47.0); HEMOGLOBIN 10.7 gm/dL (12.0-15.0); MCHC 32.4 g/dL (28.0-37.0); MCV 89.7 fL (80.0-100.0); RBC 3.7 mil/uL (4.20-5.00); RDW 19.5 % (10.5-14.5); WBC 18.1 thou/uL (4.0-11.0)
[2020-11-29 05:14] LABS: CALCIUM 9.3 mg/dL (8.5-10.1); CREATININE 4.7 mg/dL (0.6-1.0); POTASSIUM 4.3 mmol/L (3.5-5.1)
--- NOTE | 2020-11-29 17:14 | NUR ---
PATIENT REFUSED DIALYSIS TODAY. PATIENT NOT PROGRESSING TOWARDS THE PLAN OF CARE. PLAN IS TO POTENTIALLY EXTUBATE ONCE DIALYSIS IS COMPLETE.
--- NOTE | 2020-11-29 22:19 | NUR ---
PTS SON ALEXANDER CALLED AT APPROX 2019. PLAN OF CARE DISCUSSED. 2114 PATIENT FACETIMED SONS ON PERSONAL PHONE AND WROTE NOTES TO THEM ON WHITE BOARD. PATIENT TOLD SONS THAT THEY SHOULD COME GET HER. SONS WERE AT THE ER ENTRANCE. THIS RN TO BEDSIDE. EXPLAINED THAT PATIENT WAS INTUBATED, AND WOULD NEED ANOTHER SESSON OF HD BEFORE PATIENT COULD BE EXTUBED, PER THE PLAN OF CARE. PATIENTS SON STATED THAT IS IS HER RIGHT TO LEAVE AND PATIENT WROTE THAT ON THE WHITE BOARD. THIS RN EXLAINED THAT DR GOINS WOULD CALL AND DISCUSS. THIS RN PAGED DR GOINS, NOTIFIED HOUSE SUP AND CREDIT REVIEW MANAGER. 2129 RN TO BEDSIDE. SEDATION STOPPED FOR PHONE CONVERSATION WITH DR. GOINS AND EVAN. THIS RN, HOUSE SUP, AND CREDIT REVIEW MANAGER WERE PRESENT IN THE ROOM FOR THE FACETIME CONVERSATION WITH THE SONS WHILE DR GOINS WAS ON A SPEAKER PHONE CALL WITH SONS. DR GOINS EXPLAINED PLAN OF CARE. SONS REQUESTED THAT DR SIM BE PAGED TO REQUEST IMMEDIATE HD, PATIENT REFUSED HD EARLIER IN THE DAY, REQUIRING THE PATIENT TO REMAIN INTUBATED. SONS AWARE OF PLAN OF CARE. 2149 DR[address] SIM PAGED. 2154 DR[address] VARGAS CALLED BACK. SPOKE WITH CREDIT REVIEW MANAGER. UNABLE TO DO HD TONIGHT. PATIENT AND SONS UPDATED. PATIENTS SONS STATE THAT THEY WOULD TAKE PATIENT HOME IF SHE WANTED BUT STRESSED THAT SHE NEEDED TO STAY. AFTER LOTS OF DIALOG PATIENT WROTE "FUCK IT. ILL STAY. CALL THE AQUATICS MANAGER" 2202 SEDATION RESTARTED BY THIS RN. PATIENT AGREEABLE TO PLAN OF CARE. PATIENT REQUESTING PATIENT ADVOACTE. WILL FOLLOW UP WITH DAY TEAM. PATIENT EXPRESSED NEED FOR MORPHINE FOR PAIN AND VERSED FOR ANXIETY. SEE MAR FOR DETAILS. WILL CONTINUE TO MONITOR.
[2020-11-30] VITALS (54 sets, daily range): BP systolic 85–209; BP diastolic 41–80
[2020-11-30 04:47] LABS: HEMATOCRIT 30.4 % (37.0-47.0); HEMOGLOBIN 10.2 gm/dL (12.0-15.0); MCH 29.4 pg (26.0-34.0); MCHC 33.4 g/dL (28.0-37.0); RBC 3.45 mil/uL (4.20-5.00); RDW 19.5 % (10.5-14.5); WBC 14.4 thou/uL (4.0-11.0)
--- NOTE | 2020-11-30 16:08 | NUR ---
PATIENT PLACED ON CPAP TRIAL AT 1557. PROPOFOL SHUT OFF AND FENTANYL REDUCED TO 75. HEMODIALYSIS FINISHED AT APPROXIMATELY 1550 AND 2.5 L TAKEN OFF THE PATIENT.
[2020-11-30 16:43] LABS: BE(vivo) 4.4 mmol/L (-2 to +3); HCO3 29.4 mmol/L (22.0-26.0); PCO2 45.5 mmHg (35.0-45.0); PO2 175.7 mmHg (80.0-100.0); pH 7.428 (7.360-7.450); sO2 99.2 % (92.0-98.0)
[2020-12-01] VITALS (27 sets, daily range): BP systolic 131–184; BP diastolic 57–80
[2020-12-01 04:41] LABS: HEMATOCRIT 34.8 % (37.0-47.0); HEMOGLOBIN 11.5 gm/dL (12.0-15.0); MCH 29.2 pg (26.0-34.0); MCV 88.5 fL (80.0-100.0); RBC 3.93 mil/uL (4.20-5.00); RDW 19.4 % (10.5-14.5); WBC 12.3 thou/uL (4.0-11.0)
--- NOTE | 2020-12-01 04:54 | NUR ---
This RN spoke to Dr. Reyes regarding patients elevated troponin. Discussed patient status. Orders to no longer call for elevated troponins.
[2020-12-01 05:12] LABS: CALCIUM 9.4 mg/dL (8.5-10.1); CREATININE 4.1 mg/dL (0.6-1.0); POTASSIUM 4.2 mmol/L (3.5-5.1)
--- NOTE | 2020-12-01 12:36 | NUR ---
AT APPX 1200, PT TRANSFERRED TO ROOM 353 VIA WC WITH NO APPARENT PROBLEMS AND IN STABLE CONDITION. PT ASSISTED TO SIT ON SIDE OF BED. PT DENIES COMPLAINTS @ THIS TIME.
--- NOTE | 2020-12-01 18:30 | NUR ---
assumed care of pt on arrival to floor. pt in no acute distress. oriented, pleasant, voicing no particular concerns. dialyzed ast bedside. transported to ct - mastoiditis in findings. downgrade to med/surg per dr bhakta. vitals stable. good appetite. wcm.
[2020-12-02 04:45] VITALS: BP 173/67
[2020-12-02 07:10] VITALS: BP 199/81
--- NOTE | 2020-12-02 08:00 | NUR ---
PT WAS VERY ANXIOUS AND DEMANDING TO BE DISCHARGED BY 0900 OR STATED SHE WOULD LEAVE AMA. DR DAVIS SAW PATIENT AND ORDERS WERE OBTAINED..
[2020-12-02] MEDS ORDERED: LEVOFLOXACIN500 MG PO (08:36)
[2020-12-02 09:00] VITALS: BP 199/81
[2020-12-02 09:04] VITALS: BP 199/81
[2020-12-02 09:07] VITALS: BP 199/81
--- NOTE | 2020-12-02 10:38 | NUR ---
DISCHARGE NOTE: SW reviewed chart and spoke with attending physician. Pt was extubated over the weekend and transferred to 3W from ICU. Pt medically stable for discharge home. Pt already discharged home earlier this morning, prior to SW visit. SW faxed discharge ppwk to [facility] for review. Left message for Jean-Pierre in the home dialysis dept to notify of discharge. No additional SW needs identified at this time, but is available to assist should needs arise.
== END 2020-12-02 09:48 | disposition home or self-care (01) | DRG 871 ==
LOC: ER 22:06 → EROBS 11-27 02:24 → ICU 11-27 02:24 → 3W 11-27 02:24 → ICU 11-27 12:06 → 3W 12-01 12:10
PROVIDERS: Emergency Medicine; Internal Medicine Nephrology; Internal Medicine Pulmonary Disease; ADMIT Hospitalist; ATTEND Hospitalist
PROC: 0BH17EZ Insertion of Endotracheal Airway into Trachea, Via Natural or Artificial Opening (ICD-10-PCS; principal; 2020-11-27)
PROC: 5A1945Z Respiratory Ventilation, 24-96 Consecutive Hours (ICD-10-PCS; principal; 2020-11-27)
PROC: 0B9C8ZX Drainage of Right Upper Lung Lobe, Via Natural or Artificial Opening Endoscopic, Diagnostic (ICD-10-PCS; principal; 2020-11-27)
PROC: 5A1D70Z Performance of Urinary Filtration, Intermittent, Less than 6 Hours Per Day (ICD-10-PCS; principal; 2020-11-27)
PROC: 02H633Z Insertion of Infusion Device into Right Atrium, Percutaneous Approach (ICD-10-PCS; principal; 2020-11-27)
PROC: 5A1D70Z Performance of Urinary Filtration, Intermittent, Less than 6 Hours Per Day (ICD-10-PCS; 2020-11-30)
PROC: 5A1D70Z Performance of Urinary Filtration, Intermittent, Less than 6 Hours Per Day (ICD-10-PCS; 2020-12-01)
DX: A41.52 Sepsis due to Pseudomonas (principal); J96.01 Acute respiratory failure with hypoxia; J18.9 Pneumonia, unspecified organism; N18.6 End stage renal disease; I69.354 Hemiplegia and hemiparesis following cerebral infarction affecting left non-dominant side; I42.9 Cardiomyopathy, unspecified; K56.7 Ileus, unspecified; M31.9 Necrotizing vasculopathy, unspecified; I13.2 Hypertensive heart and chronic kidney disease with heart failure and with stage 5 chronic kidney disease, or end stage renal disease; Z20.822 Contact with and (suspected) exposure to COVID-19; J45.909 Unspecified asthma, uncomplicated; G51.0 Bell's palsy; E11.51 Type 2 diabetes mellitus with diabetic peripheral angiopathy without gangrene; E78.5 Hyperlipidemia, unspecified; E11.22 Type 2 diabetes mellitus with diabetic chronic kidney disease; E11.42 Type 2 diabetes mellitus with diabetic polyneuropathy; K21.9 Gastro-esophageal reflux disease without esophagitis; I50.9 Heart failure, unspecified; K52.9 Noninfective gastroenteritis and colitis, unspecified; F32.9 Major depressive disorder, single episode, unspecified; R65.20 Severe sepsis without septic shock; F41.9 Anxiety disorder, unspecified; M25.50 Pain in unspecified joint; M79.10 Myalgia, unspecified site; Z86.16 Personal history of COVID-19; Z83.3 Family history of diabetes mellitus; Z82.49 Family history of ischemic heart disease and other diseases of the circulatory system; Z85.038 Personal history of other malignant neoplasm of large intestine; Z84.1 Family history of disorders of kidney and ureter; Z88.6 Allergy status to analgesic agent; Z88.1 Allergy status to other antibiotic agents; Z88.0 Allergy status to penicillin; Z88.8 Allergy status to other drugs, medicaments and biological substances; Z79.4 Long term (current) use of insulin; Z95.820 Peripheral vascular angioplasty status with implants and grafts
CPT/HCPCS: 10078; 10080; 10203; 32100

== ENCOUNTER → 2020-12-29 | Outpatient (CLI) | payer OTHER ==
[~2020-12-29] VITALS: Ht 157.5 cm; Wt 65.8 kg
[~2020-12-29] MED LIST changes: +CLONIDINE HCL0.1 MG PO; +EPOGEN20000 UNI2 INJECTION; +LIDODERM1 EACH TOP; +MEDI-DERM-L CR120 ML TOP; +MORPHINE SULFAT15 MG PO; +NARCAN4 MG NARES; +RENAL-VITE TAB0.8 MG PO; +SEVELAMER HCL800 MG PO; +VITAMIN B COMP1 EACH PO; +[UNRECOGNIZED DRUG - OTHER]; +lidocaine INJECTION
[2020-12-29 15:20] VITALS: BP 170/70
--- NOTE | 2020-12-29 16:01 | NUR ---
Pain Clinic Assessment: 1. History of Osteoarthritis: Not Applicable History of Rheumatoid Arthritis: Not Applicable 2. Height: 5 ft. 2 in. 157.5 cm. Weight: 145.0 lb. oz. 65.772 kg. Patient's BMI: 26.5 3. Vital Signs: BP: 170/70 Pulse: 82 Resp: 16 Temp: 02 Sat: 100 ECG Mon: 4. Pain Intensity: 8 5. Fall Risk: Dizziness: N Needs help standing or walking: Y Fallen in the last 3 months: Y Fall risk comments: 6. Patient on Blood Thinner: None 7. History of Hypertension: Y 8. Opioid Therapy greater than 6 weeks: N Opiate Contract Signed: 9. Risk Assessment Tool Provided: 10. Functional Assessment Tool: 11. Recreational Drug Use: Never Drug Type: Tobacco Use: Never Smoker Tobacco Type: Amount or Packs/day: How Many Years: Alcohol Use: No Frequency: Quant:
== END ==
LOC: PAIN 11:04
PROVIDERS: ATTEND Anesthesiology Pain Medicine
DX: M79.604 Pain in right leg (principal); M79.605 Pain in left leg; G89.29 Other chronic pain; E11.22 Type 2 diabetes mellitus with diabetic chronic kidney disease; I12.0 Hypertensive chronic kidney disease with stage 5 chronic kidney disease or end stage renal disease; N18.6 End stage renal disease; E07.89 Other specified disorders of thyroid; I69.359 Hemiplegia and hemiparesis following cerebral infarction affecting unspecified side; R53.83 Other fatigue; R53.1 Weakness; E03.9 Hypothyroidism, unspecified; F41.9 Anxiety disorder, unspecified; F32.9 Major depressive disorder, single episode, unspecified; Z99.2 Dependence on renal dialysis; Z79.4 Long term (current) use of insulin; Z79.899 Other long term (current) drug therapy; Z79.891 Long term (current) use of opiate analgesic; Z88.1 Allergy status to other antibiotic agents; Z88.0 Allergy status to penicillin; Z88.5 Allergy status to narcotic agent; Z88.8 Allergy status to other drugs, medicaments and biological substances

== ENCOUNTER → 2021-01-26 | Outpatient (CLI) | payer OTHER ==
[~2021-01-26] VITALS: Ht 157.5 cm; Wt 67.9 kg
[~2021-01-26] MED LIST changes: +ATROVENT HFA14 GM INH; +BUTRANS1 EACH INTRADERM; +BUTRANS1 EACH TRANSDERM; +HYDROCODON-ACE1 EAC7 PO; +MIRALAX119 GM PO; +PROTONIX40 M2 PO; +trajenta PO
[2021-01-26 13:11] VITALS: BP 185/85
--- NOTE | 2021-01-26 13:46 | NUR ---
Pain Clinic Assessment: 1. History of Osteoarthritis: Not Applicable History of Rheumatoid Arthritis: Not Applicable 2. Height: 5 ft. 2 in. 157.5 cm. Weight: 149.6 lb. oz. 67.858 kg. Patient's BMI: 27.4 3. Vital Signs: BP: 185/85 Pulse: 88 Resp: 16 Temp: 02 Sat: 100 ECG Mon: 4. Pain Intensity: 8 5. Fall Risk: Dizziness: N Needs help standing or walking: N Fallen in the last 3 months: N Fall risk comments: 6. Patient on Blood Thinner: None 7. History of Hypertension: Y 8. Opioid Therapy greater than 6 weeks: N Opiate Contract Signed: 9. Risk Assessment Tool Provided: 10. Functional Assessment Tool: 11. Recreational Drug Use: Never Drug Type: Tobacco Use: Never Smoker Tobacco Type: Amount or Packs/day: How Many Years: Alcohol Use: No Frequency: Quant:
== END ==
LOC: PAIN 11:14
PROVIDERS: ATTEND Anesthesiology Pain Medicine
DX: M54.5 Low back pain (principal); G89.29 Other chronic pain; I13.2 Hypertensive heart and chronic kidney disease with heart failure and with stage 5 chronic kidney disease, or end stage renal disease; I50.9 Heart failure, unspecified; N18.6 End stage renal disease; E11.319 Type 2 diabetes mellitus with unspecified diabetic retinopathy without macular edema; H54.8 Legal blindness, as defined in USA; F41.9 Anxiety disorder, unspecified; F32.9 Major depressive disorder, single episode, unspecified; Z99.2 Dependence on renal dialysis; Z92.3 Personal history of irradiation; Z79.899 Other long term (current) drug therapy; Z79.891 Long term (current) use of opiate analgesic; Z88.0 Allergy status to penicillin; Z88.1 Allergy status to other antibiotic agents; Z88.5 Allergy status to narcotic agent

== ENCOUNTER 2021-02-11 21:23 | Inpatient (IN) | payer OTHER ==
[~2021-02-11] VITALS: Ht 157.5 cm; Wt 65.8 kg
[2021-02-11 21:32] VITALS: BP 152/67
[2021-02-11 23:18] LABS: ABSOLUTE NEUTROPHILS 9.1 thou/uL (1.4-8.2); BASOPHILS 0.4 % (0.0-2.0); HEMATOCRIT 41.7 % (37.0-47.0); HEMOGLOBIN 13.7 gm/dL (12.0-15.0); LYMPHOCYTES 12.6 % (24.0-44.0); MCH 31.3 pg (26.0-34.0); MCHC 32.8 g/dL (28.0-37.0); MCV 95.4 fL (80.0-100.0); MONOCYTES 9.5 % (1.0-8.0); PLATELET COUNT 254 thou/uL (150-400); POLYS 76.5 % (36.0-66.0); RBC 4.37 mil/uL (4.20-5.00); RDW 20.6 % (10.5-14.5); WBC 11.9 thou/uL (4.0-11.0)
[2021-02-11 23:40] LABS: ALBUMIN 3.8 g/dL (3.4-5.0); BUN 62 mg/dL (7-18); CHLORIDE 61 mmol/L (98-107); CO2 22 mmol/L (21-32); CREATININE 9.8 mg/dL (0.6-1.0); GLUCOSE 164 mg/dL (74-106); SGOT 7 U/L (15-37); TOTAL BILIRUBIN 0.5 mg/dL (0.2-1.0); TOTAL PROTEIN 8.2 g/dL (6.4-8.2); TROPONIN-I <0.06 ng/mL (<0.06)
[2021-02-11 23:43] LABS: ANION GAP 47 mmol/L (7-16); SGPT 18 U/L (30-65); SODIUM 130 mmol/L (136-145)
[2021-02-12 02:00] VITALS: BP 152/67
[2021-02-12 02:16] LABS: URINE BILIRUBIN 2+ (Negative); URINE BLOOD NEGATIVE (Negative); URINE CLARITY SL CLOUDY; URINE COLOR YELLOW; URINE GLUCOSE-RANDOM* TRACE (Negative); URINE KETONES 2+ (Negative); URINE LEUKOCYTES-REFLEX NEGATIVE (Negative); URINE NITRITE-REFLEX NEGATIVE (Negative); URINE PROTEIN (DIPSTICK) 2+ (Negative); URINE SPECIFIC GRAVITY 1.025 (1.005-1.035)
[2021-02-12 02:45] LABS: BACTERIA-REFLEX 1-9 Few /HPF (None Seen); CELLULAR CASTS 0-3 Few /LPF (None Seen); CRYSTALS None Seen /LPF (None Seen); HYALINE CASTS 4-10 Moderate /LPF (None Seen); MUCUS 4-6 Moderate strn/LPF (None Seen); SQUAMOUS 4-10 Moderate /LPF (0-3); URINE RBC 3-10 Few /HPF (NONE SEEN); URINE WBC-REFLEX 0-5 Rare /HPF (0-5)
--- NOTE | 2021-02-12 04:30 | NUR ---
new admission for pnemonia. no cough or shortness of air this shift. patient needs minimum assistance with adl, bed mobility, transfer and toileting. patient aox4 makes needs known. patient refused to stay npo and ate dinner at around 0430. patient continues to say she has a good heart and does not want to be seen by a cardiology. patient is dialysis patient. fall precaution in place. patient blood sugar is 123, no insulin needed. patient denied chest pain this shift. patient in bed asleep at this time breathing regular and unlaboured.
[2021-02-12 06:33] VITALS: BP 141/78
--- NOTE | 2021-02-12 09:24 | 2DMMODE ---
[facility] [place] [address] 2 D/M-MODE ECHOCARDIOGRAM Name: SHANNAN FRANK Room #: 453-P ADM IN M.R.#: [id number] Admission: 02/12/21 Attend Phys: Giuliano León MD Discharge: Date of : 74 Report #: [id number] THIS REPORT FOR: cc: Bryanna Otto MD, Stany A. MD Lundgren,Morgan Freeman MD [facility] ~ APPROVED REPORT Study performed: 02/12/2021 08:28:19 EXAM: Comprehensive 2D, Doppler, and color-flow Echocardiogram Patient Location: Bedside Room #: 453 Status: routine BSA: 1.66 HR: 86 bpm BP: 141/78 mmHg Rhythm: NSR Other Information Study Quality: Adequate Indications Congestive Heart Failure Dyspnea Chest Pain Hx: NISCM, PVD, HTN, HLP, DM, ESRD, Cancer, COVID-- Jul 2019. 2D Dimensions RVDd: 37.36 mm IVSd: 12.28 (7-11mm) LVOT Diam: 19.30 (18-24mm) LVDd: 49.77 mm PWd: 12.03 (7-11mm) Ascending Ao: 29.92 (22-36mm) LVDs: 39.32 (25-40mm) Left Atrium: 33.04 (27-40mm) Aortic Root: 30.34 mm Volumes Left Atrial Volume (Systole) Single Plane 4CH: 38.38 mL Single Plane 2CH: 47.65 mL LA ESV Index: 28.00 mL/m2 Aortic Valve AoV Peak Hiram.: 1.58 m/s [facility] [place] [address] 2 D/M-MODE ECHOCARDIOGRAM Name: ORI FRANKA Room #: 453-P [facility] IN .R.#: [id number] Admission: 02/12/21 Attend Phys: Giuliano León MD Discharge: Date of : 74 Report #: [id number] AO Peak Gr.: 9.95 mmHg LVOT Max P.46 mmHg LVOT Max V: 1.06 m/s COSME Vmax: 1.96 cm2 Mitral Valve E/A Ratio: 1.1 MV Decel. Time: 194.09 ms MV E Max Hiram.: 1.52 m/s MV A Hiram.: 1.34 m/s MV PHT: 56.28 ms IVRT: 64.59 ms Pulmonary Valve PV Peak Hiram.: 1.11 m/s PV Peak Gr.: 4.94 mmHg Pulmonary Vein P Vein S: 0.86 m/s P Vein D: 0.79 m/s P Vein S/D Ratio: 1.09 Tricuspid Valve TR Peak Hiram.: 2.53 m/s RAP Estimate: 5.00 mmHg TR Peak Gr.: 25.53 mmHg PA Pressure: 30.00 mmHg Left Ventricle The left ventricle is normal size. There is normal LV segmental wall motion. Mild concentric left ventricular hypertrophy. Left ventricular systolic function is normal. LVEF is 50-55%. Moderate diastolic dysfunction Right Ventricle The right ventricle is normal size. The right ventricular systolic function is normal. Atria The left atrium size is normal. The right atrium size is normal. Aortic Valve The aortic valve is normal in structure. No aortic regurgitation is present. There is no aortic valvular stenosis. Mitral Valve The mitral valve is normal in structure. There is no mitral valve regurgitation noted. No evidence of mitral valve stenosis. [facility] [address] [place] [address] 2 D/M-MODE ECHOCARDIOGRAM Name: SHANNAN FRANK Room #: 453-P [facility] IN ..#: [id number] Admission: 02/12/21 Attend Phys: Giuliano León MD Discharge: Date of : 74 Report #: [id number] Tricuspid Valve The tricuspid valve is normal in structure. Trace tricuspid regurgitation. Estimated PAP is 30mmHg. Pulmonic Valve The pulmonary valve is normal in structure. Trace pulmonic regurgitation. Great Vessels The aortic root is normal in size. The ascending aorta is normal in size. IVC is normal in size and collapses >50% with inspiration. Pericardium There is no pericardial effusion. <Conclusion> Left ventricular systolic function is normal. There is normal LV segmental wall motion. Mild concentric left ventricular hypertrophy. LVEF is 50-55%. Moderate diastolic dysfunction The aortic valve is normal in structure. No aortic regurgitation or stenosis. The mitral valve is normal in structure. No mitral valve regurgitation. Trace tricuspid regurgitation. Estimated pulmonary artery pressure of 30mmHg. There is no pericardial effusion. <ELECTRONICALLY SIGNED> By: Morgan James MD, FACC 02/12/21923 3 3 Morgan James MD, FACC /INF
[2021-02-12 11:00] VITALS: BP 128/46
[2021-02-12 14:06] VITALS: BP 158/93
--- NOTE | 2021-02-12 14:29 | NUR ---
ASSUMED PT CARE THIS AM. PT A&OX4, ABLE TO MAKE NEEDS KNOWN. DIALYSIS ACCESS TO LEFT FOREARM. IV REMAINS PATENT, MEDICATIONS INFUSE WITHOUT ISSUE. PATIENT REMAINS CONTINENT, UP TI BATHROOM WITH STANDBY ASSIST. PATIENT REPORTING PAIN THAT DECREASES WITH PAIN MEDICATION GIVEN PER EMAR. PATIENT REMAINS ON ROOM AIR. FALL PRECAUTIONS ARE IN PLACE, CALL LIGHT WITHIN REACH.
[2021-02-12 17:59] VITALS: BP 128/46
[2021-02-12 20:11] VITALS: BP 148/82
--- NOTE | 2021-02-13 03:08 | NUR ---
PATIENT AOX4 MAKES NEEDS KNOWN. PATIENT HAS A DIALYSIS GRAFT ON LFA. PATIENT LUNGS ARE DIMINISHED. NO COUGH OR SHORT OF AIR NOTED THIS SHIFT. FALL PRECAUTION IN PLACE. PATIENT IN BED ASLEEP AT THIS TIME BREATHING REGULAR AND UNLABOURED.
[2021-02-13 06:06] VITALS: BP 146/79
[2021-02-13 09:09] VITALS: BP 161/72
--- NOTE | 2021-02-13 09:25 | EKG ---
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
[2021-02-13] MEDS ORDERED: CEFUROXIME250 MG PO (09:28)
[2021-02-13 11:59] LABS: BASOPHILS 0.1 % (0.0-2.0); EOSINOPHILS 1.1 % (0.0-3.0); HEMATOCRIT 37.6 % (37.0-47.0); HEMOGLOBIN 12.1 gm/dL (12.0-15.0); LYMPHOCYTES 3.9 % (24.0-44.0); MCH 30.3 pg (26.0-34.0); MCHC 32.2 g/dL (28.0-37.0); MONOCYTES 6.6 % (1.0-8.0); PLATELET COUNT 238 thou/uL (150-400); POLYS 88.3 % (36.0-66.0); RDW 20.6 % (10.5-14.5); WBC 11.3 thou/uL (4.0-11.0)
[2021-02-13 12:14] LABS: ALBUMIN 3.3 g/dL (3.4-5.0); ANION GAP 16 mmol/L (7-16); BUN 88 mg/dL (7-18); CALCIUM 9.4 mg/dL (8.5-10.1); CHLORIDE 99 mmol/L (98-107); CO2 20 mmol/L (21-32); GLUCOSE 126 mg/dL (74-106); SGOT 12 U/L (15-37); SGPT 10 U/L (30-65); SODIUM 135 mmol/L (136-145); TOTAL BILIRUBIN 0.4 mg/dL (0.2-1.0); TOTAL PROTEIN 7.6 g/dL (6.4-8.2); TROPONIN-I <0.06 ng/mL (<0.06)
[2021-02-13 12:17] LABS: POTASSIUM 6.6 mmol/L (3.5-5.1)
[2021-02-13 13:06] VITALS: BP 161/72
[2021-02-13 13:12] LABS: ANISOCYTOSIS 1+; PLATELET ESTIMATE NORMAL
--- NOTE | 2021-02-13 15:56 | NUR ---
ASSUMED CARE OF PT AT 0700 THIS MORNING. PT IS A/OX4 UP @[facility], [facility] HAS REFUSED DIALYSIS AND MEDS YESTERDAY. PT DID ACCEPT DIALYSIS THIS MORNING AFTER SHE RECEIVES ANTI-EMETIC AMD PAIN MED. PT STATED SHE WOULD LIKE TO GO HOME AFTER DIALYSIS AND HCP ORDERED DISCHARGE OF PT. PT COMPLETED ONLY 1.5 HOURS OF DIALYSIS AND WANTED IT STOPPED. DIALYSIS NURSE CONTACTED THE NEPHROLOGY PHYSICIAN AND HE STATED TO GO AHEAD AND END THE PROCEDURE. IV WAS DC'D AMD WAS GIVEN PAPERWORK FOR DISCHARGE. PT SIGNED PAPERS AND WAS DRESSED. PT TRANSPORTED BY MECHANICAL ENGINEERING SPECIALIST AND WC TO FRONT OF HOSPITAL. PT LEFT BY POV.
== END 2021-02-13 15:30 | disposition home or self-care (01) | DRG 193 ==
LOC: ER 21:23 → 4W 02-12 01:08 → EROBS 02-12 01:08 → 4W 02-12 02:58
PROVIDERS: Nurse Practitioner Family; ADMIT Hospitalist; ATTEND Hospitalist
PROC: 5A1D70Z Performance of Urinary Filtration, Intermittent, Less than 6 Hours Per Day (ICD-10-PCS; principal; 2021-02-13)
DX: J18.9 Pneumonia, unspecified organism (principal); N18.6 End stage renal disease; I13.2 Hypertensive heart and chronic kidney disease with heart failure and with stage 5 chronic kidney disease, or end stage renal disease; I42.8 Other cardiomyopathies; Z20.822 Contact with and (suspected) exposure to COVID-19; E03.9 Hypothyroidism, unspecified; J45.909 Unspecified asthma, uncomplicated; E11.22 Type 2 diabetes mellitus with diabetic chronic kidney disease; F41.9 Anxiety disorder, unspecified; I50.9 Heart failure, unspecified; K21.9 Gastro-esophageal reflux disease without esophagitis; D64.9 Anemia, unspecified; E21.5 Disorder of parathyroid gland, unspecified; E78.00 Pure hypercholesterolemia, unspecified; E11.51 Type 2 diabetes mellitus with diabetic peripheral angiopathy without gangrene; I25.10 Atherosclerotic heart disease of native coronary artery without angina pectoris; D72.829 Elevated white blood cell count, unspecified; Z86.73 Personal history of transient ischemic attack (TIA), and cerebral infarction without residual deficits; Z79.4 Long term (current) use of insulin; Z98.49 Cataract extraction status, unspecified eye; Z88.6 Allergy status to analgesic agent; Z88.1 Allergy status to other antibiotic agents; Z88.0 Allergy status to penicillin; Z88.8 Allergy status to other drugs, medicaments and biological substances; Z85.038 Personal history of other malignant neoplasm of large intestine; Z79.82 Long term (current) use of aspirin; Z79.899 Other long term (current) drug therapy; Z83.3 Family history of diabetes mellitus; Z82.49 Family history of ischemic heart disease and other diseases of the circulatory system; Z84.1 Family history of disorders of kidney and ureter
CPT/HCPCS: 10045; 32100

== ENCOUNTER 2021-07-10 22:44 | Emergency (ER) | payer OTHER ==
[~2021-07-10] VITALS: Ht 147.3 cm; Wt 47.6 kg
[~2021-07-10 22:44] MED LIST changes: +CEFUROXIME250 MG PO
[2021-07-11 02:50] VITALS: BP 110/68
== END 2021-07-11 03:41 | disposition home or self-care (01) ==
LOC: ER 22:44
DX: S30.0XXA Contusion of lower back and pelvis, initial encounter (principal); S09.90XA Unspecified injury of head, initial encounter; E11.22 Type 2 diabetes mellitus with diabetic chronic kidney disease; I12.0 Hypertensive chronic kidney disease with stage 5 chronic kidney disease or end stage renal disease; N18.6 End stage renal disease; Z79.4 Long term (current) use of insulin; Z79.82 Long term (current) use of aspirin; Z79.899 Other long term (current) drug therapy; Z79.891 Long term (current) use of opiate analgesic; Z88.6 Allergy status to analgesic agent; Z88.1 Allergy status to other antibiotic agents; Z88.5 Allergy status to narcotic agent; Z88.0 Allergy status to penicillin; Z88.8 Allergy status to other drugs, medicaments and biological substances; Z48.00 Encounter for change or removal of nonsurgical wound dressing; W18.39XA Other fall on same level, initial encounter; Y93.89 Activity, other specified; Y92.89 Other specified places as the place of occurrence of the external cause; Y99.8 Other external cause status

== ENCOUNTER 2021-08-19 21:44 | Emergency (ER) | payer OTHER ==
[~2021-08-19] VITALS: Ht 157.5 cm; Wt 59.0 kg
[2021-08-19 23:45] VITALS: BP 201/103
== END 2021-08-19 23:48 | disposition home or self-care (01) ==
LOC: ER 21:44
DX: S06.0X0A Concussion without loss of consciousness, initial encounter (principal); S20.212A Contusion of left front wall of thorax, initial encounter; E11.22 Type 2 diabetes mellitus with diabetic chronic kidney disease; I12.0 Hypertensive chronic kidney disease with stage 5 chronic kidney disease or end stage renal disease; N18.6 End stage renal disease; Z88.1 Allergy status to other antibiotic agents; Z88.0 Allergy status to penicillin; Z88.5 Allergy status to narcotic agent; Z88.8 Allergy status to other drugs, medicaments and biological substances; Z79.82 Long term (current) use of aspirin; Z79.2 Long term (current) use of antibiotics; Z79.899 Other long term (current) drug therapy; W18.30XA Fall on same level, unspecified, initial encounter; Y93.89 Activity, other specified; Y92.89 Other specified places as the place of occurrence of the external cause; Y99.8 Other external cause status

== ENCOUNTER 2021-08-26 16:26 | Emergency (ER) | payer OTHER ==
[~2021-08-26] VITALS: Ht 157.5 cm; Wt 57.6 kg
--- NOTE | ~2021-08-26 | EMS ---
[address] [address] EMS Patient Care Report Name: SHANNAN FRANK Room #: PRE M.R.#: [id number] Admission: Attend Phys: Discharge: Date of : 74 Report #: [id number] THIS REPORT FOR: //name// Report Transmitted: 08/26/2021 16:09 EMS Care Summary [place], [place]/[facility] Incident [phone] @ 08/26/2021 15:49 Incident Location [address] [place] [address] Patient SHANNAN FRANK Female, 51 Years 1970 Patient Address [address] [place] [address] Patient History Diabetes,Hypertension (HTN),End Stage Renal Disease (ESRD),Sepsis,Dialysis, Patient Allergies Codeine,Penicillin allergy,Haldol,Amoxicillin, Patient Medications Flexeril, Hydralazine, Torsemide, Novolog, Pravastatin, Lisinopril, Lantus, Amlodipine, Albuterol, Labetalol, Chief Complaint HEADACHE Disposition Transported No Lights/[place] Dispatch Reason Headache Transported To [facility] Narrative M528 ARRIVES TO FIND 51 Y/O F PT HAVING BEEN EXPERIENCING A HEADACHE FOR A WEEK. PT STATES HEADACHE WORSENED TODAY. ASSESSMENTS AND TREATMENTS NOTED. PT AMBULATORY WITH ASSISTANCE AND MOVES TO COT. PT MOVED TO AMBULANCE. PT [address] [address] EMS Patient Care Report Name: SHANNAN FRANK [id number] Admission: Attend Phys: Discharge: Date of : 74 Report #: [id number] TRANSPORTED. M528 ARRIVES AT DESTINATION. PT MOVED TO ROOM IN ED. PT MOVED TO BED IN ROOM VIA DRAWSHEET METHOD. PT CARE TRANSFERRED. M528 RETURNS TO SERVICE. Initial Vitals @16:05P: 74,R: 18,BP: 132/84,Pain: 10/10,GCS: 15,Revised Trauma: 12, @16:15P: 84,R: 18,Pain: 10/10,GCS: 15,SpO2: 98, Assessments @16:00MENTAL:Place Oriented,Person Oriented,Time Oriented,Event Oriented,SKIN:HEENT:Head/Face: Other,LUNG SOUNDS:ABDOMEN:PELVIS//GI:EXTREMITIES:PULSE:NEURO:@16:15MENTAL:No Abnormalities,SKIN:No Abnormalities,HEENT:Head/Face: Other,Eyes: No Abnormalities,Neck/Airway: No Abnormalities,LUNG SOUNDS:General: No Abnormalities,Left Upper: No Abnormalities,Right Upper: No Abnormalities,Left Lower: No Abnormalities,Right Lower: No Abnormalities,ABDOMEN:General: No Abnormalities,Left Upper: No Abnormalities,Right Upper: No Abnormalities,Left Lower: No Abnormalities,Right Lower: No Abnormalities,PELVIS//GI:No Abnormalities,EXTREMITIES:Left Arm: No Abnormalities,Right Arm: No Abnormalities,Left Leg: No Abnormalities,Right Leg: No Abnormalities,PULSE:NEURO:No Abnormalities, Impression Headache Procedures @16:00 ALS Assessment Response: UnchangedSucceeded Timeline 15:47,Call Received 15:47,Dispatch Notified 15:49,Dispatched 15:49,En Route 15:55,On Scene 16:00,At Patient 16:00,ALS Assessment,Response: UnchangedSucceeded, 16:05,BP: 132/84 M,PULSE: 74,RR: 18 R,SPO2: Ox,ETCO2: ,BG: ,PAIN: 10,GCS: 15, 16:14,Depart Scene 16:15,BP: / M,PULSE: 84,RR: 18 R,SPO2: 98 Ox,ETCO2: ,BG: ,PAIN: 10,GCS: 15, 16:21,At Destination 16:35,Call Closed Disclaimer v1.1 Copyright 2021 [employer] This EMS Care Summary contains data elements from the applicable legal record (which may be displayed differently). It is designed to provide pertinent [address] [address] EMS Patient Care Report Name: SHANNAN FRANK Room #: PRE M.R.#: [id number] Admission: Attend Phys: Discharge: Date of : 74 Report #: [id number] information for the following purposes: continuity of care, clinical quality, and state data reporting. The complete legal record is available to ED staff and administrators of the receiving hospital in [email or web address]'s Patient Tracker. All data is provided "as is."
[2021-08-26 17:00] LABS: HEMOGLOBIN 10.5 gm/dL (12.0-15.0); RBC 3.59 mil/uL (4.20-5.00)
[2021-08-26 17:02] LABS: ABSOLUTE NEUTROPHILS 7.3 thou/uL (1.4-8.2); BASOPHILS 0.2 % (0.0-2.0); EOSINOPHILS 1.5 % (0.0-3.0); HEMATOCRIT 32.2 % (37.0-47.0); LYMPHOCYTES 9.2 % (24.0-44.0); MCH 29.1 pg (26.0-34.0); MCHC 32.5 g/dL (28.0-37.0); MCV 89.7 fL (80.0-100.0); MONOCYTES 3.4 % (1.0-8.0); PLATELET COUNT 475 thou/uL (150-400); POLYS 85.7 % (36.0-66.0); RDW 18.9 % (10.5-14.5); WBC 8.5 thou/uL (4.0-11.0)
[2021-08-26 17:14] LABS: ANION GAP 16 mmol/L (7-16); BUN 22 mg/dL (7-18); CALCIUM 9.9 mg/dL (8.5-10.1); CHLORIDE 94 mmol/L (98-107); CO2 24 mmol/L (21-32); CREATININE 6.1 mg/dL (0.6-1.0); GLUCOSE 182 mg/dL (74-106); POTASSIUM 3.2 mmol/L (3.5-5.1); SODIUM 134 mmol/L (136-145)
[2021-08-26 17:18] LABS: ALBUMIN 2.7 g/dL (3.4-5.0); SGOT 11 U/L (15-37); TOTAL BILIRUBIN 0.3 mg/dL (0.2-1.0); TOTAL PROTEIN 7.9 g/dL (6.4-8.2)
[2021-08-26 17:30] LABS: ANISOCYTOSIS 2+
[2021-08-26 17:33] LABS: SGPT < 6 U/L (14-59)
[2021-08-26] MEDS ORDERED: NAPROSYN500 MG PO (17:40)
[2021-08-26] MEDS ORDERED: CORTISPORIN OTI10 M2 OTIC (17:41)
[2021-08-26 18:21] VITALS: BP 122/64
== END 2021-08-26 18:22 | disposition home or self-care (01) ==
LOC: ER 16:26
PROVIDERS: Emergency Medicine
DX: R51.9 Headache, unspecified (principal); E11.22 Type 2 diabetes mellitus with diabetic chronic kidney disease; N18.6 End stage renal disease; Z79.899 Other long term (current) drug therapy; Z88.0 Allergy status to penicillin; Z88.5 Allergy status to narcotic agent; Z88.8 Allergy status to other drugs, medicaments and biological substances

== ENCOUNTER 2021-08-28 12:00 | Emergency (ER) | payer MEDICARE, OTHER ==
[~2021-08-28] VITALS: Ht 157.5 cm; Wt 57.9 kg
[~2021-08-28 12:00] MED LIST changes: +CORTISPORIN OTI10 M2 OTIC; +NAPROSYN500 MG PO
[2021-08-28 12:22] VITALS: BP 189/107
[2021-08-28] MEDS ORDERED: DOXYCYCLINE 10100 MG PO (14:12)
== END 2021-08-28 14:30 | disposition home or self-care (01) ==
LOC: ER 12:00
DX: H65.02 Acute serous otitis media, left ear (principal); M26.602 Left temporomandibular joint disorder, unspecified; E11.22 Type 2 diabetes mellitus with diabetic chronic kidney disease; N18.6 End stage renal disease; Z79.899 Other long term (current) drug therapy; Z88.0 Allergy status to penicillin; Z88.5 Allergy status to narcotic agent; Z88.6 Allergy status to analgesic agent